=== PATIENT | male | born 1960 | race Two or more races ===

== ENCOUNTER 2023-04-29 15:51 | Outpatient (AMB) | payer OTHER, SELFPAY ==
--- NOTE | 2023-04-29 16:16 | A.OFFPC_ITS ---
Vital Signs 04/29/23 16:17 04/29/23 18:13 Height 5 ft 9 in Weight 242 lb 2 oz BMI 35.8 BP 140/82 H 140/80 H Blood Pressure Location Lt brachial Lt brachial Position Sitting Sitting Respiration 16 Pulse 96 Pulse Source Pulse Oximeter Pulse Oximetry (%) 97 Oxygen Delivery Method Room Air Intake Visit Reasons: est care Intake Note: Patient is a new patient here to establish care for knee effusion, arthritis. Transferring care from [facility]. Medical records have been requested and yet received. 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 by: Self / Same As Patient Allergies No Known Allergies Allergy (Verified 04/29/23 16:39) Medication List - Last Reconciled 04/29/23 by Pura Smith MD acetaminophen ER 650 mg PO TID ammonium lactate 12% 1 appl topical BID dupilumab (Dupixent) mg subcut fluoxetine mg PO fluticasone propionate 50 mcg/actuation sprays intranasal hydrochlorothiazide 25 mg PO DAILY imipramine HCl 25 mg PO BEDTIME lorazepam 1 mg PO BID metoprolol succinate ER 50 mg PO DAILY omeprazole 20 mg PO DAILY simvastatin 40 mg PO BEDTIME tolterodine ER 4 mg PO DAILY tramadol 50 mg PO BID PRN triamcinolone acetonide 0.1% 1 appl topical BID-TID zolpidem 10 mg PO BEDTIME PRN Tobacco use date assessed: 04/29/23 Dental Screening Dental Screen Date: 04/29/23 Did you have a dental visit in the last 12 months?: Yes Did you have a dental problem in the last 6 months where you did not have access to dental care?: No Was dental information given to patient?: Patient has dentist HPI HPI Comments History of Present Illness Details This is a 62-year-old male with hypertension, chronic GERD, pure hypercholesterolemia, moderate major depression and anxiety that comes today to establish care. Blood pressure borderline normal to elevated and will be recheck in 3 weeks by nurse navigator. GERD stable with medications. Lipid panel will be order to check his cholesterol. Has moderate major depression with no suicidal thoughts as well as anxiety and this is follow by Psychiatry. Denies any chest pain or shortness of breath. Went recently to to knee pain that require arthrocentesis and was diagnosed with gout. COUNT INCLUDES [facility] Surgical History S/P meniscectomy S/P prostatectomy Family History (Updated 04/29/23 @ 16:48 by Pura Smith MD) Mother Essential hypertension Brother Colon cancer Social History (Updated 04/29/23 @ 16:48 by Pura Smith MD) Housing: Apartment Alcohol intake: current Alcohol intake frequency: holidays/special occasions only Alcohol type: beer Patient Tobacco Use Status: Never used Tobacco e-Cigarette/Vaping Use: Never Used service: No Current occupational status: retired Cognitive needs: No Hearing needs: No Vision needs: Yes Questionnaire PHQ-9 Over the last 2 weeks, how often have you been bothered by any of the following problems? 1. Little interest or pleasure in doing things: nearly every day 2. Feeling down, depressed, or hopeless: nearly every day 3. Trouble falling or staying asleep, or sleeping too much: more than half the days 4. Feeling tired or having little energy: more than half the days 5. Poor appetite or overeating: several days 6. Feeling bad about yourself - or that you are a failure or have let yourself or your family down: nearly every day 7. Trouble concentrating on things, such as reading the newspaper or watching television: more than half the days 8. Moving or speaking so slowly that other people could have noticed. Or the opposite - being so fidgety or restless that you have been moving around a lot more than usual: more than half the days 9. Thoughts that you would be better off or of hurting yourself in some way: not at all Total score: 18 Depression Screening Interpretation: Positive (no suicidal thoughts) Depression Screening Follow-up: Existing condition, In treatment and Community Mental Health Worker F/U Depression Screening Done: Yes 71926 - PHQ-9 Billing: Yes Source: Developed by Drs. Chucky Parker, Penny Henderson, Sandeep Dumas and colleagues, with an educational veronica from [employer]. Thrive Questionnaire Date Thrive assessed: 04/29/23 I am a: Patient What is your living situation today?: I have a steady place to live Within the past 12 months, did the food you bought not last and you didn't have the money to get more?: Never true Within the past 12 months, did you worry whether your food would run out before you got money to buy more?: Never true Do you have trouble paying for medicines?: No Do you have trouble getting transportation to medical appointments?: No Do you have trouble paying your heating and electricity bill?: No Do you have trouble taking care of your child, family member or friend?: No Do you have trouble with day-to-day activities such as bathing, preparing meals, shopping, managing finances, etc.?: No Are you currently unemployed and looking for a job?: No Are you interested in more education?: No Please select the resources that you would like help with: None Currently or been in a relationship where the following occur: no concerns reported THRIVE Score: 0 AUDIT C Alcohol Use Questionnaire (AUDIT-C) 1. How often do you have a drink containing alcohol?: Monthly or less 2. How many drinks containing alcohol do you have on a typical day when you are drinking?: 3 or 4 3. How often do you have six or more drinks on one occasion?: Never Total Score: 2 EDWARD-7 AMB Questionnaire EDWARD-7 Date EDWARD - 7 assessed: 04/29/23 Feeling nervous, anxious, or on edge: 3 = Nearly every day Not being able to stop or control worryin = More than half the days Worrying too much about different things: 3 = Nearly every day Trouble relaxin = Nearly every day Being so restless that it is hard to sit still: 2 = More than half the days Becoming easily annoyed or irritable: 2 = More than half the days Feeling afraid as if something awful might happen: 1 = Several days Total EDWARD-7 score (0-4 normal; 5-9 mild; 10-14 moderate; 15-21 severe): 16 Source: Developed by Drs. Chucky Parker, Penny Henderson, Sandeep Dumas and colleagues, with an educational veronica from [employer]. EDWARD-7 Assessment Billing EDWARD-7 Assessment Tool: EDWARD-7 Assessment 27248 Review of Systems Const All systems reviewed & are unremarkable except as noted in HPI and below Eyes Reports no additional complaints, Denies change in vision and Denies other visual disturbances Card Denies chest pain at rest, Denies chest pain with activity, Denies edema, Denies irregular heart rhythm, Denies claudication, Denies dyspnea, Denies dyspnea on exertion, Denies orthopnea, Denies paroxysmal nocturnal dyspnea and Denies slow heart rate Resp Denies cough, Denies dyspnea and Denies dyspnea on exertion GI Denies abdominal pain, Denies change in bowel habits, Denies excessive flatus, Denies nausea and Denies vomiting Denies urinary hesitancy, Denies urinary incontinence and Denies urinary urgency Musc Denies abnormal gait, Denies atrophy, Denies deformity and Denies limited range of motion Skin/Breast Denies bleeding lesions, Denies changing lesions and Denies rash Neuro Denies abnormal gait, Denies behavioral changes and Denies lack of coordination Psych Denies behavioral changes Physical exam (Primary Care) Vital Signs: Last Vital Signs Pulse 96 04/29/23 16:17 Resp 16 04/29/23 16:17 BP 140/82 H 04/29/23 16:17 Pulse Ox 97 04/29/23 16:17 Oxygen Delivery Method Room Air 04/29/23 16:17 BMI result Body Mass Index 35.8 Tobacco/Smoking Status: Tobacco use Status Tobacco use date assessed 04/29/23 04/29/23 16:34 Patient Tobacco Use Status Never used Tobacco 04/29/23 16:48 e-Cigarette/Vaping Use Never Used 04/29/23 16:48 PHQ-9: PHQ-9 Score PHQ-9: Total score 18 04/29/23 16:50 Depression Screening Interpretation: Positive (no suicidal thoughts) Depression Screening Follow-up: Existing condition, In treatment and Community Mental Health Worker F/U Thrive Assessment: Date of Thrive Assessment Date Thrive assessed 04/29/23 04/29/23 16:27 Currently or been in a relationship where the following occur: no concerns reported Eyes General: appearance normal, both eyes and all related structures Eyelids: Yes eyelids normal Conjunctivae: conjunctivae normal Neck Neck: Yes normal visual inspection and Yes supple Resp Effort & Inspection: normal respiratory effort Auscultation: clear to auscultation bilaterally Cardio Jugular venous distension: no JVD Rate: regular rate Rhythm: regular rhythm Heart sounds: S1 normal heart sound present and S2 normal heart sound present Extrem General: Yes full ROM Psych Appearance: grossly normal Assessment and Plan Assessment & Plan (1) Moderate major depression: Code(s): F32.1 - Major depressive disorder, single episode, moderate Plan: Continue SSRIs. Follow-up with psychiatry. (2) Essential hypertension: Code(s): I10 - Essential (primary) hypertension Plan: Continue hydrochlorothiazide. Blood pressure goal is equal or less than 130/80. (3) Pure hypercholesterolemia: Code(s): E78.00 - Pure hypercholesterolemia, unspecified Plan: Continue statins. (4) EDWARD (generalized anxiety disorder): Code(s): F41.1 - Generalized anxiety disorder Plan: Continue benzodiazepines as needed. Follow-up with psychiatry. (5) Chronic GERD: Code(s): K21.9 - Gastro-esophageal reflux disease without esophagitis Plan: Continue PPIs. Orders: Orders Lipid Panel Today E78.5 - Hyperlipidemia, unspecified Uric Acid Today M10.9 - Gout, unspecified Comprehensive [place]. Panel Fast Today I10 - Essential (primary) hypertension Coding Level of Care Code New Pt Level 4 (23515) Diagnoses Moderate major depression F32.1 Essential hypertension I10 Pure hypercholesterolemia E78.00 EDWARD (generalized anxiety disorder) F41.1 Chronic GERD K21.9 Additional Codes EDWARD-7 Assessment Billing - EDWARD-7 Assessment Tool: EDWARD-7 Assessment 73772 ([id number]) Time Spent (min) 28
[2023-04-29 16:17] VITALS: BP 140/82; PULSE 96; RESP 16; O2SAT 97; BMI 35.8
[2023-04-29 18:13] VITALS: BP 140/80
== END 2023-04-29 16:53 | disposition home or self-care (01) ==
PROVIDERS: PCP Internal Medicine; Visit Provider Internal Medicine
DX: F32.1 Major depressive disorder, single episode, moderate (principal); I10 Essential (primary) hypertension; E78.00 Pure hypercholesterolemia, unspecified; F41.1 Generalized anxiety disorder; K21.9 Gastro-esophageal reflux disease without esophagitis
CPT/HCPCS: 99204

== ENCOUNTER 2023-09-16 08:00 | Outpatient (REF) | payer OTHER, SELFPAY ==
[2023-09-16 09:06] LABS: Alanine Aminotransferase 27 U/L (0-40); Albumin Level 4.3 g/dL (3.5-5.0); Alkaline Phosphatase 113 U/L (39-117); Anion Gap 14 (12-20); Aspartate Amino Transferase 33 U/L (5-37); Bilirubin Total 0.7 mg/dL (0.0-1.0); Blood Urea Nitrogen 7 mg/dL (9-16); Calcium 9.5 mg/dL (8.4-10.2); Carbon Dioxide 26 mmol/L (22-29); Chloride 101 mmol/L (96-108); Cholesterol 226 mg/dL (<200); Estimated Glomerular Filt Rate > 60; Glucose Fasting 125 mg/dL (60-99); HDL Cholesterol 87 mg/dL (>40); LDL Cholesterol Calculated 115 mg/dL (<100); Potassium 3.4 mmol/L (3.3-5.1); Sodium 138 mmol/L (135-145); Total Protein 7.6 g/dL (6.5-8.0); Triglycerides 124 mg/dL (<150); Uric Acid 7.6 mg/dL (3.4-7.0)
== END 2023-09-16 08:01 | disposition home or self-care (01) ==
LOC: HO.LAB 08:00
PROVIDERS: PCP Internal Medicine; Visit Provider Internal Medicine
DX: I10 Essential (primary) hypertension (principal); E78.5 Hyperlipidemia, unspecified; M10.9 Gout, unspecified
CPT/HCPCS: 36415; 80053; 80061; 84550

== ENCOUNTER 2023-09-18 11:09 | Outpatient (AMB) | payer OTHER, SELFPAY ==
--- NOTE | 2023-09-18 11:12 | MHC.PC.OV ---
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 Accompanied by: step son Allergies No Known Allergies Allergy (Verified 09/18/23 11:26) Medication List - Last Reconciled 09/18/23 by Pura Smith MD acetaminophen ER 650 mg PO TID 30 days ammonium lactate 12% 1 appl topical BID dupilumab (Dupixent) mg subcut fluoxetine 40 mg PO DAILY 90 days fluticasone propionate 50 mcg/actuation 1 spray intranasal DAILY 30 days hydroxyzine HCl 25 mg PO TID imipramine HCl 25 mg PO BEDTIME 90 days lorazepam 1 mg PO BID metoprolol succinate ER 50 mg PO DAILY 90 days omeprazole 20 mg PO DAILY 90 days quetiapine 50 - 100 mg PO BEDTIME PRN simvastatin 40 mg PO BEDTIME 90 days tacrolimus 0.1% 1 appl topical BID tolterodine ER 4 mg PO DAILY 90 days Tobacco use date assessed: 04/29/23 Dental Screening Dental Screen Date: 04/29/23 HPI HPI Comments History of Present Illness Details This is a 62-year-old male with moderate major depression that comes accompanied by the son of his significant other for his physical exam. Moderate major depression is follow by Psychiatry and has been stable. Blood pressure is elevated and I will add losartan and blood pressure will be recheck in 3 weeks by nurse navigator. Denies any chest pain or shortness on breath. Had a brother with colon cancer and has never had a colonoscopy as per patient. Will be refer through open access. Has elevated blood glucose that will be repeated. Has polyuria and polydipsia but no unintentional weight loss. Complains of low back pain and left hip pain that radiates to the left leg and is associated with left leg numbness and tingling most likely due to sciatica and I will sent him for physical therapy. [facility] Surgical History S/P meniscectomy S/P prostatectomy Family History (Updated 09/18/23 @ 11:32 by Pura Smith MD) Mother Essential hypertension Brother Colon cancer Father Pulmonary embolism Social History Housing: Apartment Alcohol intake: current Alcohol intake frequency: holidays/special occasions only Alcohol type: beer Patient Tobacco Use Status: Never used Tobacco e-Cigarette/Vaping Use: Never Used Second Hand Smoke Exposure: No service: No Current occupational status: retired Cognitive needs: No Hearing needs: No Vision needs: Yes Questionnaire Thrive Questionnaire Date Thrive assessed: 04/29/23 AUDIT C Alcohol Use Questionnaire (AUDIT-C) 1. How often do you have a drink containing alcohol?: 2-4 times a month 2. How many drinks containing alcohol do you have on a typical day when you are drinking?: 3 or 4 3. How often do you have six or more drinks on one occasion?: Never Total Score: 3 Score Reviewed/Action Taken: No EDWARD-7 AMB Questionnaire EDWARD-7 Date EDWARD - 7 assessed: 04/29/23 Source: Developed by Drs. Chucky Parker, Penny Henderson, Sandeep Dumas and colleagues, with an educational veronica from [employer]. Review of Systems Const All systems reviewed & are unremarkable except as noted in HPI and below Card Denies chest pain at rest, Denies chest pain with activity, Denies edema, Denies irregular heart rhythm, Denies claudication, Denies dyspnea, Denies dyspnea on exertion, Denies orthopnea, Denies paroxysmal nocturnal dyspnea and Denies slow heart rate Resp Denies cough, Denies dyspnea and Denies dyspnea on exertion Musc Reports back pain Neuro Denies behavioral changes Psych Denies behavioral changes Physical exam (Primary Care) Vital Signs: Last Vital Signs BP 146/88 H 09/18/23 11:14 Care Plan Goal for BP management: Blood pressure goal is less than 130/80. Next steps: Start losartan. Recheck blood pressure with nurse navigator in 3 weeks. BMI result Body Mass Index 34.3 BMI Assessment/Plan discussion: High BMI High, discussed plan: lifestyle, weight reduction, dietary and physical activity Tobacco/Smoking Status: Tobacco use Status Tobacco use date assessed 04/29/23 09/18/23 11:13 Patient Tobacco Use Status Never used Tobacco 09/18/23 11:13 e-Cigarette/Vaping Use Never Used 09/18/23 11:13 Thrive Assessment: Date of Thrive Assessment Date Thrive assessed 04/29/23 09/18/23 11:13 HENMA Head: Yes normal to inspection, Yes normocephalic and Yes atraumatic Ears: external ears normal Eyes General: appearance normal, both eyes and all related structures Eyelids: Yes eyelids normal Conjunctivae: conjunctivae normal Neck Neck: Yes normal visual inspection and Yes supple Resp Effort & Inspection: normal respiratory effort Auscultation: clear to auscultation bilaterally Cardio Jugular venous distension: no JVD Rate: regular rate Rhythm: regular rhythm Heart sounds: S1 normal heart sound present and S2 normal heart sound present GI Inspection: Yes normal to inspection Palpation (GI): Soft to palpation and nontender Auscultation: normal bowel sounds Skin General skin exam: no rashes or lesions noted Neuro General: no focal motor deficits Extrem General: Yes full ROM Psych Appearance: grossly normal Assessment and Plan Assessment & Plan (1) Physical exam: Code(s): Z00.00 - Encounter for general adult medical examination without abnormal findings Plan: Repeat in a year. (2) Left sided sciatica: Code(s): M54.32 - Sciatica, left side Plan: Start physical therapy. X-ray ordered. (3) Left hip pain: Code(s): M25.552 - Pain in left hip Plan: X-ray ordered. (4) Moderate major depression: Code(s): F32.1 - Major depressive disorder, single episode, moderate Plan: Continue Seroquel. Follow-up with psychiatry. Orders: Orders Comprehensive [place]. Panel Fast Today R73.02 - Impaired glucose tolerance (oral) PT Evaluation and Treatment Today M54.32 - Sciatica, left side XR lumbar spine 2-3V Today M54.32 - Sciatica, left side XR hip LT min 2V Today M25.552 - Pain in left hip Referrals Open Access Screening Colonoscopy Referral Z12.11 - Encounter for screening for malignant neoplasm of colon Medications: New allopurinol 100 mg PO DAILY 90 days 90 tabs 0RF M10.9 - Gout, unspecified losartan 25 mg PO DAILY 90 days 90 tabs 1RF I10 - Essential (primary) hypertension atorvastatin 80 mg PO BEDTIME 90 days 90 tabs 1RF E78.00 - Pure hypercholesterolemia, unspecified Discontinued simvastatin Discontinued Reason: Patient Completed Course 40 mg PO BEDTIME 90 days 90 tabs 1RF Coding Level of Care Code Est Pt Level 3 (68620) Est Pt Prev Care 40-64y(93093) Diagnoses Physical exam Z00.00 Left sided sciatica M54.32 Left hip pain M25.552 Moderate major depression F32.1 Time Spent (min) 35
[2023-09-18 11:14] VITALS: BP 146/88; BMI 34.3
[2023-09-18 11:53] VITALS: BP 150/90
== END 2023-09-18 11:41 | disposition home or self-care (01) ==
PROVIDERS: PCP Internal Medicine; Visit Provider Internal Medicine
DX: Z00.00 Encounter for general adult medical examination without abnormal findings (principal); M54.32 Sciatica, left side; M25.552 Pain in left hip; F32.1 Major depressive disorder, single episode, moderate
CPT/HCPCS: 99213; 99396

== ENCOUNTER 2023-11-21 11:00 | Outpatient (RCR) | payer OTHER, SELFPAY | END 2024-01-21 09:53 | disposition home or self-care (01) | LOC: HO.PT 11:00 | PROVIDERS: PCP Internal Medicine; Visit Provider Internal Medicine | DX: M54.32 Sciatica, left side (principal) | CPT/HCPCS: 97110; 97112; 97161; 97530 ==

== ENCOUNTER 2024-02-07 09:37 | Outpatient (REF) | payer OTHER, SELFPAY ==
[2024-02-07 11:04] LABS: Alanine Aminotransferase 150 U/L (0-40); Albumin Level 4.3 g/dL (3.5-5.0); Alkaline Phosphatase 155 U/L (39-117); Anion Gap 21 (12-20); Aspartate Amino Transferase 217 U/L (5-37); Blood Urea Nitrogen 5 mg/dL (9-16); Calcium 9.1 mg/dL (8.4-10.2); Carbon Dioxide 21 mmol/L (22-29); Chloride 98 mmol/L (96-108); Estimated Glomerular Filt Rate > 60; Glucose Fasting 181 mg/dL (60-99); Potassium 3.7 mmol/L (3.3-5.1); Sodium 136 mmol/L (135-145); Total Protein 8.5 g/dL (6.5-8.0)
== END 2024-02-07 09:38 | disposition home or self-care (01) ==
LOC: HO.LAB 09:37
PROVIDERS: PCP Internal Medicine; Visit Provider Internal Medicine
DX: R73.02 Impaired glucose tolerance (oral) (principal)
CPT/HCPCS: 36415; 80053

== ENCOUNTER 2024-02-09 15:10 | Outpatient (AMB) | payer OTHER, SELFPAY ==
--- NOTE | 2024-02-09 16:44 | A.OFFPC_ITS ---
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: No Accompanied by: Self / Same As Patient Allergies No Known Allergies Allergy (Verified 02/09/24 17:14) Medication List - Last Reconciled 02/09/24 by Pura Smith MD acetaminophen ER 650 mg PO TID 30 days allopurinol 100 mg PO DAILY 90 days ammonium lactate 12% 1 appl topical BID atorvastatin 80 mg PO BEDTIME 90 days dupilumab (Dupixent) mg subcut fluoxetine 40 mg PO DAILY 90 days fluticasone propionate 50 mcg/actuation 1 spray intranasal DAILY 30 days hydroxyzine HCl 25 mg PO TID imipramine HCl 25 mg PO BEDTIME 90 days lorazepam 1 mg PO BID losartan 25 mg PO DAILY 90 days metoprolol succinate ER 50 mg PO DAILY 90 days omeprazole 20 mg PO DAILY 90 days quetiapine 50 - 100 mg PO BEDTIME PRN tacrolimus 0.1% 1 appl topical BID tolterodine ER 4 mg PO DAILY 90 days Tobacco use date assessed: 04/29/23 Fall risk assessment: No Falls in past year Last assessed Fall Risk: 02/09/24 Dental Screening Dental Screen Date: 02/09/24 Did you have a dental visit in the last 12 months?: Yes Did you have a dental problem in the last 6 months where you did not have access to dental care?: No Was dental information given to patient?: Patient has dentist HPI HPI Comments History of Present Illness Details The patient is a 63-year-old male presenting with elevated blood pressure and knee pain. The patient reports a long-standing history of essential hypertension, currently not well controlled. Blood pressure was found to be high during the recent visit, with a recommendation for follow-up blood pressure monitoring in three weeks with nurse navigator. The patient denies smoking. Additionally, the patient has a history of gout, currently managed with allopurinol 100 mg, and hypercholesterolemia managed with atorvastatin 80 mg. Anxiety and depression are managed with fluoxetine and hydroxyzine, respectively. The patient reports knee pain, which has persisted for approximately 3-4 months, affecting both knees. The pain is exacerbated by extension and is described as severe enough to limit walking. Examination findings prompted the consideration of a referral to orthopedics for further evaluation. Previous laboratory results indicated elevated liver enzymes and elevated blood sugar levels, with plans for re-evaluation in upcoming tests. For transaminitis and ultrasound of the abdomen will be order to check the liver and liver enzymes will be repeated. He admits having polyuria and polydipsia and his A1c today 7.5% and with made the diagnosis of diabetes mellitus. We will start him on metformin twice a day and he will check his fasting blood glucose daily. Patient is aware of side effects of metformin such as abdominal pain and diarrhea. [facility] Surgical History S/P meniscectomy S/P prostatectomy Family History Mother Essential hypertension Brother Colon cancer Father Pulmonary embolism Social History Housing: Apartment Alcohol intake: current Alcohol intake frequency: holidays/special occasions only Alcohol type: beer Patient Tobacco Use Status: Never used Tobacco e-Cigarette/Vaping Use: Never Used Second Hand Smoke Exposure: No service: No Current occupational status: retired Cognitive needs: No Hearing needs: No Vision needs: Yes Questionnaire Thrive Questionnaire Date Thrive assessed: 04/29/23 EDWARD-7 AMB Questionnaire EDWARD-7 Date EDWARD - 7 assessed: 04/29/23 Source: Developed by Drs. Chucky Parker, Penny Henderson, Sandeep Dumas and colleagues, with an educational veronica from [employer]. Review of Systems Const Details: - Musculoskeletal: Reports knee pain, bilaterally. - Endocrine: Denies excessive thirst. - General: Denies recent illness. Physical exam (Primary Care) Vital Signs: Last Vital Signs BP 144/84 H 02/09/24 16:45 BMI result Body Mass Index 34.8 BMI Assessment/Plan discussion: High BMI High, discussed plan: lifestyle, weight reduction, dietary and physical activity Tobacco/Smoking Status: Tobacco use Status Tobacco use date assessed 04/29/23 02/09/24 16:47 Patient Tobacco Use Status Never used Tobacco 02/09/24 16:47 e-Cigarette/Vaping Use Never Used 02/09/24 16:47 Thrive Assessment: Date of Thrive Assessment Date Thrive assessed 04/29/23 02/09/24 16:47 Const Other: General: No confusion Respiratory: Normal respiratory effort, clear to auscultation bilaterally Cardiovascular: No jugular venous distension, regular rate, regular rhythm, S1 normal heart sound present and S2 normal heart sound present Extremities: Full ROM, but pain in both knees, especially when extending Psychology: Grossly normal Office Procedures Flu Questionnaire Does the patient have a severe egg allergy?: No Results AMB Hemoglobin A1c AMB Hemoglobin A1c 7.5 % Last Edit by HANNAH Carlisle on 02/09/24 17:2 8 Immunizations Fluarix Triv [id number] (PF) 45 mcg (15 mcg x 3)/0.5 mL IM syringe Performing Provider: Pura Smith MD Performing Location: [facility] [place] [facility] Documented (not given) by: HANNAH Carlisle on 02/09/24 17:28 Reason Not Given: Not Given Results Reviewed Results Reviewed: Laboratory Last Values Hgb A1c (Clinic) 7.5 % (4.0-6.0) H 02/09/24 17:27 Coding Level of Care Code Est Pt Level 4 (04435) Complex EM visit Add On G2211 Diagnoses Type 2 diabetes mellitus with hyperglycemia, without long-term current use of insulin E11.65 Diabetes mellitus type: type 2 Diabetes mellitus fci insulin use: without marine oil 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 use Diabetes mellitus complication status: with hyperglycemia Chronic pain of right knee M25.561; G89.29 Chronicity: chronic Chronic pain of left knee M25.562; G89.29 Chronicity: chronic Transaminitis R74.01 Moderate major depression F32.1 EDWARD (generalized anxiety disorder) F41.1 Essential hypertension I10 Pure hypercholesterolemia E78.00 Time Spent (min) 22 Assessment & Plan Assessment & Plan (1) Diabetes mellitus: Code(s): E11.9 - Type 2 diabetes mellitus without complications Category: Medical Qualifiers: Diabetes mellitus type: type 2 Diabetes mellitus fci insulin use: without marine oil 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 use Diabetes mellitus complication status: with hyperglycemia Qualified Code(s): E11.65 - Type 2 diabetes mellitus with hyperglycemia (2) Right knee pain: Code(s): M25.561 - Pain in right knee Category: Medical Qualifiers: Chronicity: chronic Qualified Code(s): M25.561 - Pain in right knee; G89.29 - Other chronic pain (3) Left knee pain: Code(s): M25.562 - Pain in left knee Category: Medical Qualifiers: Chronicity: chronic Qualified Code(s): M25.562 - Pain in left knee; G89.29 - Other chronic pain (4) Transaminitis: Code(s): R74.01 - Elevation of levels of liver transaminase levels Category: Medical (5) Moderate major depression: Code(s): F32.1 - Major depressive disorder, single episode, moderate Category: Medical (6) EDWARD (generalized anxiety disorder): Code(s): F41.1 - Generalized anxiety disorder Category: Medical (7) Essential hypertension: Code(s): I10 - Essential (primary) hypertension Category: Medical (8) Pure hypercholesterolemia: Code(s): E78.00 - Pure hypercholesterolemia, unspecified Category: Medical Plan - Continue current antihypertensive medications, reassess blood pressure in three weeks. - Schedule follow-up labs for liver enzymes and blood glucose levels in two to three weeks. - Referral to orthopedics for assessment of bilateral knee pain and potential intervention. - Perform an ultrasound of the liver to evaluate elevated liver enzymes. - Encourage compliance with current prescribed medications for depression, anxiety, and hypercholesterolemia. Patient was informed and verbally consented to the use of an ambient scribe for clinic note documentation during this visit. I discussed with the patient the importance of regular monitoring and management of blood pressure to prevent complications. We reviewed the elevated liver enzymes and the need for an ultrasound to rule out significant hepatic pathology. Additionally, I emphasized adherence to medication regimens for anxiety, depression, hypercholesterolemia, and gout. The need for orthopedic evaluation for persistent knee pain was also addressed. Future lab tests and imaging were outlined, and follow-up was scheduled for comprehensive assessment. Orders: Orders PT Evaluation and Treatment 02/09/24 M25.561 - Pain in right knee, M25.562 - Pain in left knee US abdomen comp w elastography 02/09/24 R74.01 - Elevation of levels of liver transaminase levels Hepatitis A,B,C Profile 02/09/24 R74.01 - Elevation of levels of liver transaminase levels XR knee LT 2V 02/09/24 M25.562 - Pain in left knee XR knee RT 2V 02/09/24 M25.561 - Pain in right knee AMB Hemoglobin A1c 02/09/24 R73.01 - Impaired fasting glucose Influenza [id number] Immunization 02/09/24 Z23 - Encounter for immunization Referrals Orthopedics Referral M25.561 - Pain in right knee, M25.562 - Pain in left knee Medications: New metformin 500 mg PO BID 90 days 180 tabs 1RF E11.9 - Type 2 diabetes mellitus without complications blood sugar diagnostic (FreeStyle Lite Strips) Use 1 test strip once a day 100 ea 3RF E11.9 - Type 2 diabetes mellitus without complications blood-glucose meter (FreeStyle Lite Meter kit) As directed 1 ea 0RF E11.9 - Type 2 diabetes mellitus without complications lancets (FreeStyle Lancets) Use 1 lancet once a day 100 ea 1RF E11.9 - Type 2 diabetes mellitus without complications Refilled fluticasone propionate 50 mcg/actuation 1 spray intranasal DAILY 30 days 16 grams 1RF Patient Instructions: - Monitor blood pressure at home and note any significant changes. - Continue current medications as prescribed. - Attend scheduled follow-up appointments for blood pressure check and lab retesting. - Follow up with the systems software specialist as scheduled for knee evaluation. - Report any new or worsening symptoms immediately.
[2024-02-09 16:45] VITALS: BP 144/84; BMI 34.8
== END 2024-02-09 17:34 | disposition home or self-care (01) ==
PROVIDERS: PCP Internal Medicine; Visit Provider Internal Medicine
DX: E11.65 Type 2 diabetes mellitus with hyperglycemia (principal); F32.1 Major depressive disorder, single episode, moderate; M25.561 Pain in right knee; G89.29 Other chronic pain; M25.562 Pain in left knee; R74.01 Elevation of levels of liver transaminase levels; F41.1 Generalized anxiety disorder; I10 Essential (primary) hypertension; E78.00 Pure hypercholesterolemia, unspecified

== ENCOUNTER → 2024-02-09 15:10 | Outpatient (BNVA) | payer OTHER, SELFPAY | PROVIDERS: PCP Internal Medicine; Visit Provider Internal Medicine | DX: E11.65 Type 2 diabetes mellitus with hyperglycemia (principal); M25.561 Pain in right knee; M25.562 Pain in left knee; G89.29 Other chronic pain; R74.01 Elevation of levels of liver transaminase levels; F32.1 Major depressive disorder, single episode, moderate; F41.1 Generalized anxiety disorder; I10 Essential (primary) hypertension; E78.00 Pure hypercholesterolemia, unspecified | CPT/HCPCS: 83036; 90471; 99212 ==

== ENCOUNTER → 2024-02-26 13:25 | Outpatient (BNVA) | payer OTHER, SELFPAY | PROVIDERS: PCP Internal Medicine ==

== ENCOUNTER 2024-03-02 08:05 | Outpatient (REF) | payer OTHER, SELFPAY ==
--- NOTE | ~2024-03-02 | US_ITS ---
EXAMINATION: US ABDOMEN COMPLETE WITH LIVER ELASTOGRAPHY HISTORY: R74.01 - Elevation of levels of liver transaminase levels TECHNIQUE: Real-time grayscale ultrasound imaging of the abdomen was performed and images were reviewed. COMPARISON: There are no prior studies for comparison. FINDINGS: Liver: The liver is enlarged and demonstrates increased echotexture, compatible with steatosis. No focal mass or intrahepatic biliary ductal dilatation is identified. There is normal hepatopedal flow in the portal vein. Ultrasound elastography of the liver was performed with 10 separate measurements of the liver parenchyma with the patient in the supine position. Measurements were obtained approximately 2 cm below Veronica's capsule and perpendicular to the capsule. Images are of satisfactory quality. The median shear wave velocity is 1.91 m/s. The interquartile range/median (IQR/median) is 0.08. Gallbladder and biliary tree: There is a probable 2 mm gallbladder polyp. The gallbladder is otherwise unremarkable, without evidence of calculi, wall thickening, or pericholecystic fluid. There is no sonographic Franco sign. The common bile duct is normal in caliber measuring 5 mm. Kidneys: The right kidney measures 10.7 cm in length. The left kidney measures 11.3 cm in length. The kidneys are unremarkable, without evidence of masses, hydronephrosis, or calculi. Pancreas: The pancreatic head, neck, and body are unremarkable. The pancreatic tail is obscured by bowel gas. Spleen: The spleen is normal in size and contour, measuring 9.2 cm in length. There is a 1.3 cm splenule. Abdominal aorta and inferior vena cava: The visualized portions of the abdominal aorta and inferior vena cava are normal in caliber. There is no free fluid in the abdomen. US/US abdomen comp w elastography IMPRESSION: Hepatomegaly and hepatic steatosis. The median shear wave velocity is 1.91 m/s, corresponding to a median liver stiffness of 11.05 kPa. The IQR/median value is 0.08. This is indicative of a quality data set. Findings are indicative of a high elastography value suggestive of advanced chronic liver disease. REFERENCE: Society of Radiologists in Ultrasound Liver Stiffness Thresholds (2020): LIVER STIFFNESS THRESHOLDS: *Shear wave velocity less than 1.3 m/s (Liver Stiffness equal or less than 5 kPa): High probability of being normal. *Shear wave velocity less than 1.7 m/s (Liver Stiffness less than 9 kPa): In the absence of other known clinical signs, rules out compensated advanced chronic liver disease. *Shear wave velocity between 1.7-2.1 m/s (Liver Stiffness 9-13 kPa): Suggestive of compensated advanced chronic liver disease but need further test for confirmation. *Shear wave velocity between 2.1-2.4 m/s (Liver Stiffness 13-17 kPa): Rules in compensated advanced chronic liver disease. *Shear wave velocity greater than 2.4 m/s (Liver Stiffness over 17 kPa): Suggestive of clinically significant portal hypertension. QUALITY OF DATA SET: *IQR/Median value equal or less than 0.15 implies a quality data set. *IQR/Median value over 0.15 implies a poor quality data set. SIGNIFICANT CHANGE FROM PRIOR EXAM: Significant change if liver stiffness measurement is 10% or greater from prior exam. OTHER CONSIDERATIONS: The stage of liver fibrosis may be overestimated in the setting of acute hepatitis, liver inflammation, elevated liver function tests, hepatic vascular congestion, obstructive cholestasis, non-fasting state, and infiltrative diseases such as amyloidosis and lymphoma. In some patients with NAFLD, the liver stiffness thresholds for compensated advanced chronic liver disease may be lower. In causes other than viral hepatitis and NAFLD, liver stiffness thresholds are not well established. Electronically signed by: Chucky Beavers MD 03/03/2024 08:20 AM [facility]
== END 2024-03-02 08:06 | disposition home or self-care (01) ==
LOC: HO.US 08:05
PROVIDERS: PCP Internal Medicine; Visit Provider Internal Medicine
DX: R74.01 Elevation of levels of liver transaminase levels (principal)
CPT/HCPCS: 76700; 76981

== ENCOUNTER → 2024-03-02 08:06 | Outpatient (BNV) | payer OTHER, SELFPAY | PROVIDERS: PCP Internal Medicine; Visit Provider Radiology Diagnostic Radiology | DX: R74.01 Elevation of levels of liver transaminase levels (principal) | CPT/HCPCS: 76700 ==

== ENCOUNTER 2024-03-11 13:17 | Outpatient (AMB) | payer OTHER, SELFPAY ==
--- NOTE | 2024-03-11 13:32 | MHC.OFFVIS ---
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 States his left is worse. States he feels unstable on his feet and has fallen multiple times. States his knee locks when walking and ROM is painful. Patient has tried P.T but was not able to to complete his session due to a personal issue. Hx of injection in the 90's with good relief for about 2-3 month. Also has numbness and tingling in bilateral feet. 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 States his left is worse. States he feels unstable on his feet and has fallen multiple times. States his knee locks when walking and ROM is painful. Patient has tried P.T but was not able to to complete his session due to a personal issue. Hx of injection in the 90's with good relief for about 2-3 month. Also has numbness and tingling in bilateral feet. PFSH Surgical History S/P meniscectomy S/P prostatectomy Family History Mother Essential hypertension Brother Colon cancer Father Pulmonary embolism Social History Housing: Apartment Alcohol intake: current Alcohol intake frequency: holidays/special occasions only Alcohol type: beer Patient Tobacco Use Status: Never used Tobacco e-Cigarette/Vaping Use: Never Used Second Hand Smoke Exposure: No service: No Current occupational status: retired Cognitive needs: No Hearing needs: No Vision needs: Yes Review of Systems Const All systems reviewed & are unremarkable except as noted in HPI and below Physical Exam Vital Signs: BMI result Body Mass Index 34.8 Extrem Other: Patient's bilateral knees normal to inspection No erythema, ecchymosis, edema noted No lacerations, abrasions, open areas No evidence of infection Patient reports diffuse tenderness to palpation of the left knee No tenderness to palpation of the anterior aspect, posterior aspect, medial or lateral joint lines, posterior knee, or elsewhere in the right knee Distal sensation intact Capillary refill brisk Results Reviewed Results Reviewed: X-rays obtained in the office today and independently reviewed by me, Nathan Motley PA-C, demonstrate moderate to severe degenerative changes of bilateral knees, worse in the medial compartment bilaterally. Assessment & Plan Assessment & Plan (1) Osteoarthritis of knees, bilateral: Code(s): M17.0 - Bilateral primary osteoarthritis of knee Category: Medical Plan 1. Osteoarthritis of bilateral knees Pain worse in left knee Patient was educated about this condition Patient is educated about the treatment options available, including physical therapy, injections, and referral to surgeon for discussion of potential total knee arthroplasty Patient states he is interested in having the discussion with a surgeon about what a total knee replacement would entail As patient was originally scheduled to see Dr. Serrano today, I have placed a referral to him for his next available surgical consult to discuss potential knee replacement in this patient Patient was amenable to this plan Patient will follow-up for next available surgical consult to discuss total knee arthroplasty with Dr. Serrano, sooner with any acute concerns Orders: Orders XR knee LT 3V Today G89.29 - Other chronic pain, M25.562 - Pain in left knee XR knee RT 3V Today G89.29 - Other chronic pain, M25.561 - Pain in right knee Coding Level of Care Code New Pt Level 3 (54543) Diagnoses Osteoarthritis of knees, bilateral M17.0
[2024-03-11 13:33] VITALS: BMI 34.8
--- OUTSIDE RECORDS SUMMARY | 2024-03-11 15:37 | XMS_ITS | Clinical Summary ---
Author Organization [facility] ity Address [address] [place] [address] Care Team Providers Care Transit Worker Name Role Phone Unavailable Primary Care Provider Unavailabl e Social History Tobacco Use Types Packs/Day Years Used Date Smoking Tobacco: Never Assessed Sex and Gender Information Value Date Recorded Sex Assigned at Not on file Gender Identity Not on file Sexual Orientation Not on file Plan of Treatment Health Maintenance Due Date Last Done Comments DTaP,Tdap,and Td Vaccines (1 - Tdap) 10/15/1978 Zoster Vaccines (1 of 2) 10/15/2009 Cholesterol Screening (Lipid Panel) 01/19/2022 Colorectal Cancer Screening: Colonoscopy 01/19/2022 Depression Screening 01/19/2022 HIV Screening 01/19/2022 Hepatitis C Screening 01/19/2022 Social Influencers of Health Screening 01/19/2022 COVID-19 Vaccine (2 - 2023-2 5 season) 2023 05/04/2020 Influenza Vaccine (#1) 2023 RSV Immunization Patients 60 + Years Old (1 - 1-dose 75+ series) 10/15/2034 HIB Vaccines Aged Out No longer eligi ble based on patient's age to complete this topic HPV Vaccines Aged Out No longer eligi ble based on patient's age to complete this topic Hepatitis A Vaccines Aged Out No long er eligible based on patient's age to complete this topic Hepatitis B Vaccines Aged Out No long er eligible based on patient's age to complete this topic IPV Vaccines Aged Out No longer eligi ble based on patient's age to complete this topic MMR Vaccines Aged Out No longer eligi ble based on patient's age to complete this topic Meningococcal ACWY Vaccine Aged Out N o longer eligible based on patient's age to complete this topic Pneumococcal Vaccine: Pediat rics (0 to 5 Years) and At-Risk Patients (6 to 64 Years) Aged Out No longer eligi ble based on patient's age to complete this topic RSV Immunization Patients Un gabriel 20 months Aged Out No longer eligible b ased on patient's age to complete this topic Varicella Vaccines Aged Out No longer eligible based on patient's age to complete this topic
== END 2024-03-11 13:53 | disposition home or self-care (01) ==
PROVIDERS: PCP Internal Medicine
DX: M17.0 Bilateral primary osteoarthritis of knee (principal)
CPT/HCPCS: 99203

== ENCOUNTER 2024-03-11 13:39 | Outpatient (REF) | payer OTHER, SELFPAY ==
--- NOTE | ~2024-03-11 | XR_ITS ---
CLINICAL HISTORY: M25.561 - Pain in right knee 3 view right knee Comparison: None Findings: Bones intact. No dislocations. There are degenerative changes with moderate to severe loss of height more pronounced in the medial compartment. No joint effusion. No radiopaque foreign body. There is regional arterial calcification. IMPRESSION: 1. No acute findings. This document has been electronically signed by: Rio Lui MD on 03/13/2024 08:00:42
--- NOTE | ~2024-03-11 | XR_ITS ---
CLINICAL HISTORY: M25.562 - Pain in left knee 3 view left knee Comparison: None Findings: Bones intact. No dislocations. There are degenerative changes with moderate to severe loss of height of the joint space. No joint effusion. No radiopaque foreign body. There is regional arterial calcification. IMPRESSION: 1. No acute findings. This document has been electronically signed by: Rio Lui MD on 03/13/2024 08:01:42
--- OUTSIDE RECORDS SUMMARY | 2024-03-12 15:23 | XMS_ITS | Clinical Summary ---
Author Organization [facility] [employer] [facility] ity Address [address] [place] [address] Care Team Providers Care Network Account Manager Name Role Phone Unavailable Primary Care Provider [...]
== END 2024-03-11 13:40 | disposition home or self-care (01) ==
LOC: HO.HOSX 13:39
PROVIDERS: Visit Provider Orthopaedic Surgery
DX: M25.562 Pain in left knee (principal); G89.29 Other chronic pain; M25.561 Pain in right knee; Z91.81 History of falling
CPT/HCPCS: 73562; 99202

== ENCOUNTER 2024-04-20 14:09 | Outpatient (AMB) | payer OTHER, SELFPAY ==
--- NOTE | 2024-04-20 14:24 | A.OFFVIS_ITS ---
Vital Signs 04/20/24 14:25 Height 5 ft 9 in Weight 236 lb BMI 34.8 Intake Visit Reasons: Left knee pain Intake Note: Joselo is a 63 year old male who presents with complaints of progressively worsening bilateral knee pains, left greater than right. The patient describes his left knee pain as sharp and severe in nature, 10/10. His pain has gotten worse over the last few years in spite of continued non operative treatments. He has had both cortisone injections and viscosupplementation injections which gave him minimal relief. He has also tried Tylenol and anti-inflammatory medicines which gave him only mild relief. The patient has difficulty walking even short distances because of his left knee pain. At this point his left knee pain is interfering with his activities of daily living and his ability to sleep well through the night. Sat Math Tutor Required: Yes Sat Math Tutor Language: Adult Services Librarian Services: Sat Math Tutor Present Sat Math Tutor Name: ChanteHANNAH/MOHAMUD Allergies No Known Allergies Allergy (Verified 03/11/24 13:33) Medication List - Last Reconciled 04/20/24 by Stanley Serrano MD acetaminophen ER 650 mg PO TID 30 days [adult pull ups As directed] allopurinol 100 mg PO DAILY 90 days ammonium lactate 12% 1 appl topical BID atorvastatin 80 mg PO BEDTIME 90 days blood sugar diagnostic (FreeStyle Lite Strips) Use 1 test strip once a day blood-glucose meter (FreeStyle Lite Meter kit) As directed dupilumab (Dupixent) mg subcut fluoxetine 40 mg PO DAILY 90 days fluticasone propionate 50 mcg/actuation 1 spray intranasal DAILY 30 days hydroxyzine HCl 25 mg PO TID imipramine HCl 25 mg PO BEDTIME 90 days lancets (FreeStyle Lancets) Use 1 lancet once a day lorazepam 1 mg PO BID losartan 25 mg PO DAILY 90 days metformin 500 mg PO BID 90 days metoprolol succinate ER 50 mg PO DAILY 90 days [Non-slip shower mat As directed] omeprazole 20 mg PO DAILY 90 days quetiapine 50 - 100 mg PO BEDTIME PRN tacrolimus 0.1% 1 appl topical BID tolterodine ER 4 mg PO DAILY 90 days walker (Ultra-Light Rollator misc) As directed [facility] Surgical History S/P meniscectomy S/P prostatectomy Family History Mother Essential hypertension Brother Colon cancer Father Pulmonary embolism Social History Housing: Apartment Alcohol intake: current Alcohol intake frequency: holidays/special occasions only Alcohol type: beer Patient Tobacco Use Status: Never used Tobacco e-Cigarette/Vaping Use: Never Used Second Hand Smoke Exposure: No service: No Current occupational status: retired Cognitive needs: No Hearing needs: No Vision needs: Yes Physical Exam Vital Signs: BMI result Body Mass Index 34.8 Const Other: Well-nourished well-developed very friendly male awake alert and oriented x3 in no acute distress Extrem Other: Bilateral lower extremity examination shows good capillary refill, no skin lesions noted, normal sensation light touch Bilateral knee examination shows minimal effusions, palpable crepitus with range of motion, pain with range of motion, range of motion from -3 degrees to 115 degrees, no instability Results Reviewed Results Reviewed: X-rays of the patient's bilateral knee show end-stage degenerative joint disease with grade 4 [id number] arthritis, subchondral sclerosis, osteophyte formation, no acute bony abnormalities Assessment & Plan Assessment & Plan (1) Left knee pain: Code(s): M25.562 - Pain in left knee Category: Medical Qualifiers: Chronicity: chronic Qualified Code(s): M25.562 - Pain in left knee; G89.29 - Other chronic pain (2) Arthritis of left knee: Code(s): M17.12 - Unilateral primary osteoarthritis, left knee Category: Medical Plan Mr. Amilcar Nguyen presents with progressively worsening bilateral knee pains, left greater than right, due to end-stage degenerative joint disease. I had a lengthy discussion with the patient regarding the treatment options. At this point he has failed continued non operative treatments. The risks and benefits of left total knee replacement surgery were discussed at length with the patient. The patient wishes to proceed with surgery. He will be scheduled for next available date. I will see him back 1 week prior to his surgery to answer any final questions that he might have. Feel free to call me at any time should questions regarding his orthopedic management arise. I spent 21 minutes in reviewing the patient's records and imaging studies, seeing the patient and documenting in the medical record. Coding Level of Care Code Est Pt Level 3 (32225) Complex EM visit Add On G2211 Diagnoses Chronic pain of left knee M25.562; G89.29 Chronicity: chronic Arthritis of left knee M17.12
[2024-04-20 14:25] VITALS: BMI 34.8
--- OUTSIDE RECORDS SUMMARY | 2024-04-20 17:52 | XMS_ITS | Clinical Summary ---
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 Name Role Phone Unavailable Primary Care Provider Unavailabl e Social History Tobacco Use Types Packs/Day Years Used Date Smoking Tobacco: Never Assessed Sex and Gender Information Value Date Recorded Sex Assigned at Not on file Legal Sex Male 5:42 PM EST Gender Identity Not on file Sexual Orientation Not on file Plan of Treatment Health Maintenance Due Date Last Done Comments DTaP,Tdap,and Td Vaccines (1 - Tdap) 10/15/1978 Pneumococcal Vaccine: 50+ Ye ars (1 of 1 - PCV) 10/15/2009 Zoster Vaccines (1 of 2) 10/15/2009 Cholesterol [...] patient's age to complete this topic Meningococcal B Vacine Aged Out No lo nger eligible based on patient's age to complete [...]
== END 2024-04-20 14:42 | disposition home or self-care (01) ==
PROVIDERS: PCP Internal Medicine; Visit Provider Orthopaedic Surgery
DX: M17.0 Bilateral primary osteoarthritis of knee (principal)
CPT/HCPCS: 99213; G2211

== ENCOUNTER → 2024-04-20 14:09 | Outpatient (BNVA) | payer OTHER, SELFPAY | PROVIDERS: PCP Internal Medicine; Visit Provider Orthopaedic Surgery | DX: M17.12 Unilateral primary osteoarthritis, left knee (principal); M25.562 Pain in left knee; G89.29 Other chronic pain | CPT/HCPCS: 99212 ==

== ENCOUNTER 2024-05-25 14:35 | Outpatient (AMB) | payer OTHER, SELFPAY ==
[2024-05-25 14:41] VITALS: BP 160/100; BMI 34.4
--- NOTE | 2024-05-25 14:41 | A.OFFPC_ITS ---
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 Assembler Required: No Accompanied by: Self / Same As Patient Allergies No Known Allergies Allergy (Verified 05/25/24 14:58) Medication List - Last Reconciled 05/25/24 by Pura Smith MD acetaminophen ER 650 mg PO TID 30 days [adult pull ups As directed] allopurinol 100 mg PO DAILY 90 days ammonium lactate 12% 1 appl topical BID atorvastatin 80 mg PO BEDTIME 90 days blood sugar diagnostic (FreeStyle Lite Strips) Use 1 test strip once a day blood-glucose meter (FreeStyle Lite Meter kit) As directed dupilumab (Dupixent) mg subcut fluoxetine 40 mg PO DAILY 90 days fluticasone propionate 50 mcg/actuation 1 spray intranasal DAILY 30 days hydroxyzine HCl 25 mg PO TID imipramine HCl 25 mg PO BEDTIME 90 days lancets (FreeStyle Lancets) Use 1 lancet once a day lorazepam 1 mg PO BID losartan 25 mg PO DAILY 90 days metformin 500 mg PO BID 90 days metoprolol succinate ER 50 mg PO DAILY 90 days [Non-slip shower mat As directed] omeprazole 20 mg PO DAILY 90 days quetiapine 50 - 100 mg PO BEDTIME PRN tacrolimus 0.1% 1 appl topical BID tolterodine ER 4 mg PO DAILY 90 days walker (Ultra-Light Rollator misc) As directed Tobacco use date assessed: 05/25/24 Fall risk assessment: 1 Fall in past year Last assessed Fall Risk: 05/25/24 Dental Screening Dental Screen Date: 05/25/24 Did you have a dental visit in the last 12 months?: Yes Did you have a dental problem in the last 6 months where you did not have access to dental care?: No Was dental information given to patient?: Patient has dentist HPI HPI Comments History of Present Illness Details The patient is a 63-year-old male presenting for the management of his Type 2 Diabetes Mellitus, Essential Hypertension, and Hyperlipidemia. He indicates that his diabetes control is stable, with his HbA1c currently at 6.7%, managed by Metformin 500 mg taken twice daily. His blood pressure management includes Losartan 25 mg, with records of readings around 130/80 mmHg. He also uses atorvastatin 80 mg for dyslipidemia. His depression is being managed with fluoxetine at 40 mg, noted by his PHQ-9 score to be mild to moderate, yet insomnia remains an issue. He attributes this partially to noise disturbances from a neighbor impacting his rest. He occasionally uses medications like hydroxyzine and quetiapine (Seroquel) for managing these symptoms. His social habits include occasional alcohol intake without any tobacco use. He reports stable adherence to his prescribed medication regimen. No major changes in his condition or treatment have occurred since the last visit. [facility] Surgical History S/P meniscectomy S/P prostatectomy Family History Mother Essential hypertension Brother Colon cancer Father Pulmonary embolism Social History Housing: Apartment Alcohol intake: current Alcohol intake frequency: holidays/special occasions only Alcohol type: beer Patient Tobacco Use Status: Never used Tobacco e-Cigarette/Vaping Use: Never Used Second Hand Smoke Exposure: No service: No Current occupational status: retired Cognitive needs: No Hearing needs: No Vision needs: Yes Questionnaire PHQ-9 Over the last 2 weeks, how often have you been bothered by any of the following problems? 1. Little interest or pleasure in doing things: nearly every day 2. Feeling down, depressed, or hopeless: more than half the days 3. Trouble falling or staying asleep, or sleeping too much: more than half the days 4. Feeling tired or having little energy: several days 5. Poor appetite or overeating: not at all 6. Feeling bad about yourself - or that you are a failure or have let yourself or your family down: not at all 7. Trouble concentrating on things, such as reading the newspaper or watching television: more than half the days 8. Moving or speaking so slowly that other people could have noticed. Or the opposite - being so fidgety or restless that you have been moving around a lot more than usual: more than half the days 9. Thoughts that you would be better off or of hurting yourself in some way: not at all Total score: 12 Depression Screening Interpretation: Positive Depression Screening Follow-up: Existing condition, In treatment, Community Mental Health Worker F/U and Follow- up Visit Requested Depression Screening Done: Yes 53832 - PHQ-9 Billing: Yes Source: Developed by Drs. Chucky Parker, Penny Henderson, Sandeep Dumas and colleagues, with an educational veronica from [employer]. Thrive Questionnaire Date Thrive assessed: 05/25/24 I am a: Patient What is your living situation today?: I have a steady place to live Within the past 12 months, did the food you bought not last and you didn't have the money to get more?: Never true Within the past 12 months, did you worry whether your food would run out before you got money to buy more?: Never true Do you have trouble paying for medicines?: No Do you have trouble getting transportation to medical appointments?: No Do you have trouble paying your heating and electricity bill?: No Do you have trouble taking care of your child, family member or friend?: No Do you have trouble with day-to-day activities such as bathing, preparing meals, shopping, managing finances, etc.?: No Are you currently unemployed and looking for a job?: No Are you interested in more education?: No Please select the resources that you would like help with: None Currently or been in a relationship where the following occur: No concerns r eported THRIVE Score: 0 AUDIT C Alcohol Use Questionnaire (AUDIT-C) 1. How often do you have a drink containing alcohol?: Monthly or less 2. How many drinks containing alcohol do you have on a typical day when you are drinking?: 1 or 2 3. How often do you have six or more drinks on one occasion?: Never Total Score: 1 Score Reviewed/Action Taken: No EDWARD-7 AMB Questionnaire EDWARD-7 Date EDWARD - 7 assessed: 05/25/24 Feeling nervous, anxious, or on edge: 2 = More than half the days Not being able to stop or control worryin = Not at all Worrying too much about different things: 2 = More than half the days Trouble relaxin = Several days Being so restless that it is hard to sit still: 1 = Several days Becoming easily annoyed or irritable: 2 = More than half the days Feeling afraid as if something awful might happen: 0 = Not at all Total EDWARD-7 score (0-4 normal; 5-9 mild; 10-14 moderate; 15-21 severe): 8 Source: Developed by Drs. Chucky Parker, Penny Henderson, Sandeep Dumas and colleagues, with an educational veronica from [employer]. EDWARD-7 Assessment Billing EDWARD-7 Assessment Tool: EDWARD-7 Assessment 58959 Review of Systems Const All systems reviewed & are unremarkable except as noted in HPI and below Card Denies chest pain at rest, Denies chest pain with activity, Denies edema, Denies irregular heart rhythm, Denies claudication, Denies dyspnea, Denies dyspnea on exertion, Denies orthopnea, Denies paroxysmal nocturnal dyspnea and Denies slow heart rate Resp Denies cough, Denies dyspnea and Denies dyspnea on exertion GI Denies abdominal pain, Denies change in bowel habits, Denies excessive flatus, Denies nausea and Denies vomiting Denies urinary hesitancy, Denies urinary incontinence and Denies urinary urgency Musc Denies abnormal gait, Denies atrophy, Denies deformity and Denies limited range of motion Skin/Breast Denies bleeding lesions, Denies changing lesions and Denies rash Neuro Denies abnormal gait and Denies lack of coordination Physical exam (Primary Care) Vital Signs: Last Vital Signs BP 160/100 H 05/25/24 14:41 BMI result Body Mass Index 34.4 BMI Assessment/Plan discussion: High BMI High, discussed plan: lifestyle, weight reduction, dietary and physical activity Tobacco/Smoking Status: Tobacco use Status Tobacco use date assessed 05/25/24 05/25/24 14:49 Patient Tobacco Use Status Never used Tobacco 05/25/24 14:49 e-Cigarette/Vaping Use Never Used 05/25/24 14:49 PHQ-9: PHQ-9 Score PHQ-9: Total score 12 05/25/24 15:03 Depression Screening Interpretation: Positive Depression Screening Follow-up: Existing condition, In treatment, Community Mental Health Worker F/U and Follow- up Visit Requested Thrive Assessment: Date of Thrive Assessment Date Thrive assessed 05/25/24 05/25/24 14:49 Currently or been in a relationship where the following occur: No concerns reported Resp Effort & Inspection: normal respiratory effort Auscultation: clear to auscultation bilaterally Cardio Jugular venous distension: no JVD Rate: regular rate Rhythm: regular rhythm Heart sounds: S1 normal heart sound present and S2 normal heart sound present Extrem General: Yes full ROM Results AMB Hemoglobin A1c AMB Hemoglobin A1c 6.2 % Last Edit by HANNAH Carlisle on 05/25/24 14:5 2 Results Reviewed Results Reviewed: Laboratory Last Values Hgb A1c (Clinic) 6.2 % (4.0-6.0) H 05/25/24 14:40 Coding Level of Care Code Est Pt Level 4 (82457) Complex EM visit Add On G2211 Diagnoses Type 2 diabetes mellitus with hyperglycemia, without long-term current use of insulin E11.65 Diabetes mellitus type: type 2 Diabetes mellitus half-way insulin use: without half-way use Diabetes mellitus complication status: with hyperglycemia EDWARD (generalized anxiety disorder) F41.1 Moderate major depression F32.1 Essential hypertension I10 Pure hypercholesterolemia E78.00 Additional Codes EDWARD-7 Assessment Billing - EDWARD-7 Assessment Tool: EDWARD-7 Assessment 69292 ([id number]) PHQ-9 - 68835 - PHQ-9 Billing: Yes ([id number]) Time Spent (min) 23 Assessment & Plan Assessment & Plan (1) Diabetes mellitus: Code(s): E11.9 - Type 2 diabetes mellitus without complications Category: Medical Qualifiers: Diabetes mellitus type: type 2 Diabetes mellitus rn long term care insulin use: without rn long term care use Diabetes mellitus complication status: with hyperglycemia Qualified Code(s): E11.65 - Type 2 diabetes mellitus with hyperglycemia (2) EDWARD (generalized anxiety disorder): Code(s): F41.1 - Generalized anxiety disorder Category: Medical (3) Moderate major depression: Code(s): F32.1 - Major depressive disorder, single episode, moderate Category: Medical (4) Essential hypertension: Code(s): I10 - Essential (primary) hypertension Category: Medical (5) Pure hypercholesterolemia: Code(s): E78.00 - Pure hypercholesterolemia, unspecified Category: Medical Plan The patient's Type 2 Diabetes Mellitus is controlled with Metformin, achieving a stable HbA1c. Losartan maintains his blood pressure adequately. The patient will continue atorvastatin for Hyperlipidemia. Depression, under fluoxetine management, may need further evaluation should symptoms persist. His sleep disturbances, likely impacted by external noise, are symptomatically managed. The patient is advised to regularly monitor blood pressure and will complete labs in the coming months for comprehensive metabolic assessment. Patient was informed and verbally consented to the use of an ambient scribe for clinic note documentation during this visit. I discussed with the patient the current management of his Type 2 Diabetes Mellitus, noting his stable HbA1c, and emphasized ongoing monitoring of hypertension and lipid profiles. We talked about the potential need for psychiatric evaluation if depressive symptoms or insomnia become more severe. I reviewed the lifestyle and environmental factors impacting his sleep and encouraged continued blood pressure checks. We agreed on the timing for the next set of lab tests. The patient consented to the management plan as we have outlined and expressed understanding of all discussed strategies. Orders: Orders Lipid Panel 4 Months E78.5 - Hyperlipidemia, unspecified Microalbumin, Random (w Creat) 4 Months R80.9 - Proteinuria, unspecified AMB Hemoglobin A1c Today E11.65 - Type 2 diabetes mellitus with hyperglycemia Vitamin D 25-OH Total 4 Months E55.9 - Vitamin D deficiency, unspecified Comprehensive [place]. Panel Fast 4 Months E11.65 - Type 2 diabetes mellitus with hyperglycemia Patient Instructions: - Continue Metformin 500 mg twice daily for diabetes management. - Maintain Losartan 25 mg regimen for blood pressure. - Take atorvastatin 80 mg as prescribed for cholesterol. - Use fluoxetine 40 mg for depression. - Regularly monitor your blood pressure. - Schedule lab appointments in four months for monitoring kidney, liver, glucose, and cholesterol levels. - Continue using hydroxyzine and quetiapine as needed for sleep disturbances. - Avoid tobacco and limit alcohol to infrequent family events.
--- OUTSIDE RECORDS SUMMARY | 2024-05-25 17:42 | XMS_ITS | Clinical Summary ---
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
== END 2024-05-25 15:09 | disposition home or self-care (01) ==
LOC: HO.HMCH 14:35
PROVIDERS: PCP Internal Medicine; Visit Provider Internal Medicine
DX: E11.65 Type 2 diabetes mellitus with hyperglycemia (principal); F41.1 Generalized anxiety disorder; F32.1 Major depressive disorder, single episode, moderate; I10 Essential (primary) hypertension; E78.00 Pure hypercholesterolemia, unspecified

== ENCOUNTER → 2024-05-25 14:35 | Outpatient (BNVA) | payer OTHER, SELFPAY | PROVIDERS: PCP Internal Medicine; Visit Provider Internal Medicine | DX: E11.65 Type 2 diabetes mellitus with hyperglycemia (principal); F41.1 Generalized anxiety disorder; I10 Essential (primary) hypertension; E78.5 Hyperlipidemia, unspecified; F32.1 Major depressive disorder, single episode, moderate; E78.00 Pure hypercholesterolemia, unspecified; R80.9 Proteinuria, unspecified; E55.9 Vitamin D deficiency, unspecified; Z79.84 Long term (current) use of oral hypoglycemic drugs; Z79.899 Other long term (current) drug therapy | CPT/HCPCS: 83036; 96127; 99212 ==

== ENCOUNTER 2024-08-11 11:16 | Outpatient (REF) | payer OTHER, SELFPAY ==
[2024-08-11 13:40] LABS: Hematocrit 40.5 % (42.0-52.0); Mean Corpuscular HGB Conc 34.6 g/dl (31.0-36.0); Mean Corpuscular Hemoglobin 30.7 pg (27.0-33.0); Mean Corpuscular Volume 88.8 fL (80.0-98.0); Mean Platelet Volume 9.2 fL (9.4-12.4); Platelet Count 201 X10*3/uL (160-400); Red Blood Count 4.56 X10*6/uL (4.60-5.80); White Blood Count 5.3 X10*3/uL (4.8-10.8)
[2024-08-11 14:00] LABS: Estimated Average Glucose 123 mg/dL; Hemoglobin A1C 151.5027 umol/L; Hemoglobin A1c % 5.9 % (<6.0)
[2024-08-11 14:36] LABS: Alanine Aminotransferase 50 U/L (0-40); Albumin Level 4.8 g/dL (3.5-5.0); Alkaline Phosphatase 119 U/L (39-117); Anion Gap 16 (12-20); Aspartate Amino Transferase 83 U/L (5-37); Bilirubin Total 1.2 mg/dL (0.0-1.0); Blood Urea Nitrogen 7 mg/dL (9-16); Calcium 9.3 mg/dL (8.4-10.2); Carbon Dioxide 28 mmol/L (22-29); Chloride 98 mmol/L (96-108); Cholesterol 218 mg/dL (<200); Estimated Glomerular Filt Rate > 60; Glucose Fasting 134 mg/dL (60-99); Glucose Random 133 mg/dL (60-115); HDL Cholesterol 73 mg/dL (>40); Iron 112 mcg/dL (45-160); LDL Cholesterol Calculated 106 mg/dL (<100); Percent Iron Saturation 36 % (15-50); Potassium 3.2 mmol/L (3.3-5.1); Sodium 139 mmol/L (135-145); Total Iron Binding Capacity 309 mcg/dL (228-428); Total Protein 7.9 g/dL (6.5-8.0); Triglycerides 197 mg/dL (<150); Unsaturated Iron Binding 197 ug/dL; Vitamin D 25-OH Total 13.8 ng/mL (>30)
[2024-08-11 14:37] LABS: Ferritin 576 ng/mL (20-250); TSH reflex Free T4 3.31 uIU/mL (0.32-4.0)
[2024-08-11 14:38] LABS: Creatinine Urine 231.28 mg/dL; Microalbum/Creatinine Ratio Ur 14.7 ug/mg cr (<30)
[2024-08-12 08:05] LABS: Alpha 1 Anti-trypsin 139 mg/dL (83-199); Ceruloplasmin 21 mg/dL (14-30); Immunoglobulin A 255 mg/dL (70-320)
[2024-08-12 08:29] LABS: HBS Num1 > 1000.00 mIU/mL (0-7.99); HBc Num1 0.07 S/CO (0.00-0.79); HIV AB/AG Nonreactive (Nonreactive); HIV Num 1 0.08 S/CO (0.00-0.99); Hepatitis B Core Antibody Nonreactive (Nonreactive); Hepatitis B Surface Antigen Negative (Negative); ~HepC Num1 0.19 S/CO (0.00-0.79); ~Hepatitis B Surface Antibody REACTIVE (Nonreactive); ~Hepatitis C Antibody Nonreactive (Nonreactive)
[2024-08-12 12:14] LABS: Alpha Fetoprotein 3.2 ng/mL (<6.1)
[2024-08-12 22:39] LABS: Transglutaminase IgA <1.0 U/mL
[2024-08-13 08:58] LABS: Hepatitis A Antibody IgG REACTIVE (Nonreactive); ~Hepatitis A Antibody IgG 9.61 S/CO (0.00-0.99)
[2024-08-13 14:08] LABS: Mitochondrial Antibodies NEGATIVE (NEGATIVE)
[2024-08-14 10:58] LABS: Liver Kidney Microsomal Ab <=20.0 U (<=20.0)
[2024-08-16 03:11] LABS: Smooth Muscle Antibody <20 U (<20)
[2024-08-17 11:38] LABS: Phosphatidylethanol 16:0-18:1 >400; Phosphatidylethanol 16:0-18:2 >400
== END 2024-08-11 11:17 | disposition home or self-care (01) ==
LOC: HO.LAB 11:16
PROVIDERS: PCP Internal Medicine; Visit Provider Internal Medicine
DX: E78.5 Hyperlipidemia, unspecified (principal); E11.65 Type 2 diabetes mellitus with hyperglycemia; R80.9 Proteinuria, unspecified; E55.9 Vitamin D deficiency, unspecified; R79.89 Other specified abnormal findings of blood chemistry
CPT/HCPCS: 36415; 80053; 80061; 80321; 82043; 82103; 82105; 82306; 82390; 82570; 82728; 82784; 83036; 83540; 84443; 85027; 85610; 86015; 86364; 86376; 86381; 86704; 86706; 86708; 86803; 87340; 87389

== ENCOUNTER 2024-09-22 09:15 | Outpatient (AMB) | payer OTHER, SELFPAY ==
[2024-09-22 09:28] VITALS: BP 142/96; PULSE 81; O2SAT 96; BMI 33.6
--- NOTE | 2024-09-22 09:28 | A.OFFPC_ITS ---
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: No Accompanied by: Self / Same As Patient Allergies No Known Allergies Allergy (Verified 09/22/24 09:40) Medication List - Last Reconciled 09/22/24 by Pura Smith MD acetaminophen ER 650 mg PO TID 30 days [adult pull ups As directed] allopurinol 100 mg PO DAILY 90 days ammonium lactate 12% 1 appl topical BID atorvastatin 80 mg PO BEDTIME 90 days blood sugar diagnostic (FreeStyle Lite Strips) Use 1 test strip once a day blood-glucose meter (FreeStyle Lite Meter kit) As directed cholecalciferol (vitamin D3) 50 mcg PO DAILY 90 days dupilumab (Dupixent) mg subcut fluoxetine 40 mg PO DAILY 90 days fluticasone propionate 50 mcg/actuation 1 spray intranasal DAILY 30 days hydroxyzine HCl 25 mg PO TID imipramine HCl 25 mg PO BEDTIME 90 days lancets (FreeStyle Lancets) Use 1 lancet once a day lorazepam 1 mg PO BID losartan 25 mg PO DAILY 90 days metformin 500 mg PO BID 90 days metoprolol succinate ER 50 mg PO DAILY 90 days [Non-slip shower mat As directed] omeprazole 20 mg PO DAILY 90 days quetiapine 50 - 100 mg PO BEDTIME PRN tacrolimus 0.1% 1 appl topical BID tolterodine ER 4 mg PO DAILY 90 days vibegron (Gemtesa) 75 mg PO DAILY walker (Ultra-Light Rollator misc) As directed Tobacco use date assessed: 09/22/24 Fall risk assessment: No Falls in past year Last assessed Fall Risk: 09/22/24 Dental Screening Dental Screen Date: 09/22/24 Did you have a dental visit in the last 12 months?: Yes Did you have a dental problem in the last 6 months where you did not have access to dental care?: No Was dental information given to patient?: Patient has dentist HPI HPI Comments History of Present Illness Details The patient is a 63-year-old male presenting for an annual physical examination. He has a history of hypertension, currently managed with losartan and metoprolol, although he has not received the latter recently. His blood pressure was not elevated during this visit. The patient also has hyperlipidemia, for which he is taking atorvastatin 80 mg, but his cholesterol levels remain elevated. A new medication will be added to his regimen to better control his cholesterol levels. He reports a history of depression, managed with fluoxetine 40 mg, and continues to see his psychiatrist. His PHQ-9 score is 12, indicating moderate depression. The patient has gout, for which he takes allopurinol 100 mg, and reports no recent gout attacks. He experiences urinary incontinence and uses diapers for management. The patient has a vitamin D deficiency, and his vitamin D supplementation will be increased. Preventative care measures include colon cancer screening, which he has undergone previously with normal results. His brother has a history of colon cancer, necessitating screenings every five years. [facility] Surgical History Hx of colonoscopy History of esophagogastroduodenoscopy (EGD) S/P meniscectomy S/P prostatectomy Family History Mother Essential hypertension Brother Colon cancer Father Pulmonary embolism Social History (Updated 09/22/24 @ 09:48 by Pura Smith MD) Housing: Apartment Alcohol intake: current Alcohol intake frequency: a few times a month Alcohol type: beer Patient Tobacco Use Status: Never used Tobacco e-Cigarette/Vaping Use: Never Used Second Hand Smoke Exposure: No service: No Current occupational status: retired Cognitive needs: No Hearing needs: No Vision needs: Yes Questionnaire PHQ-9 Over the last 2 weeks, how often have you been bothered by any of the following problems? 1. Little interest or pleasure in doing things: nearly every day 2. Feeling down, depressed, or hopeless: more than half the days 3. Trouble falling or staying asleep, or sleeping too much: more than half the days 4. Feeling tired or having little energy: several days 5. Poor appetite or overeating: not at all 6. Feeling bad about yourself - or that you are a failure or have let yourself or your family down: not at all 7. Trouble concentrating on things, such as reading the newspaper or watching television: more than half the days 8. Moving or speaking so slowly that other people could have noticed. Or the opposite - being so fidgety or restless that you have been moving around a lot more than usual: more than half the days 9. Thoughts that you would be better off or of hurting yourself in some way: not at all Total score: 12 Depression Screening Interpretation: Positive Depression Screening Follow-up: Existing condition, In treatment, Community Mental Health Worker F/U and Follow- up Visit Requested Depression Screening Done: Yes 17569 - PHQ-9 Billing: Yes Source: Developed by Drs. Chucky Parker, Penny Henderson, Sandeep Dumas and colleagues, with an educational veronica from [employer]. Thrive Questionnaire Date Thrive assessed: 09/22/24 I am a: Patient What is your living situation today?: I have a steady place to live Within the past 12 months, did the food you bought not last and you didn't have the money to get more?: Never true Within the past 12 months, did you worry whether your food would run out before you got money to buy more?: Never true Do you have trouble paying for medicines?: No Do you have trouble getting transportation to medical appointments?: No Do you have trouble paying your heating and electricity bill?: No Do you have trouble taking care of your child, family member or friend?: No Do you have trouble with day-to-day activities such as bathing, preparing meals, shopping, managing finances, etc.?: No Are you currently unemployed and looking for a job?: No Are you interested in more education?: No Please select the resources that you would like help with: None Currently or been in a relationship where the following occur: No concerns reported THRIVE Score: 0 AUDIT C Alcohol Use Questionnaire (AUDIT-C) 1. How often do you have a drink containing alcohol?: Monthly or less 2. How many drinks containing alcohol do you have on a typical day when you are drinking?: 1 or 2 3. How often do you have six or more drinks on one occasion?: Never Total Score: 1 Score Reviewed/Action Taken: No EDWARD-7 AMB Questionnaire EDWARD-7 Date EDWARD - 7 assessed: 09/22/24 Feeling nervous, anxious, or on edge: 2 = More than half the days Not being able to stop or control worryin = Not at all Worrying too much about different things: 2 = More than half the days Trouble relaxin = Several days Being so restless that it is hard to sit still: 1 = Several days Becoming easily annoyed or irritable: 2 = More than half the days Feeling afraid as if something awful might happen: 0 = Not at all Total EDWARD-7 score (0-4 normal; 5-9 mild; 10-14 moderate; 15-21 severe): 8 Source: Developed by Drs. Chucky Parker, Penny Henderson, Sandeep Dumas and colleagues, with an educational veronica from [employer]. EDWARD-7 Assessment Billing EDWARD-7 Assessment Tool: EDWARD-7 Assessment 24336 Review of Systems Const All systems reviewed & are unremarkable except as noted in HPI and below Card Denies chest pain at rest, Denies chest pain with activity, Denies edema, Denies irregular heart rhythm, Denies claudication, Denies dyspnea, Denies dyspnea on exertion, Denies orthopnea, Denies paroxysmal nocturnal dyspnea and Denies slow heart rate Resp Denies cough, Denies dyspnea and Denies dyspnea on exertion GI Denies abdominal pain, Denies change in bowel habits, Denies excessive flatus, Denies nausea and Denies vomiting Denies urinary hesitancy, Denies urinary incontinence and Denies urinary urgency Musc Denies abnormal gait, Denies atrophy, Denies deformity and Denies limited range of motion Skin/Breast Denies bleeding lesions, Denies changing lesions and Denies rash Neuro Denies abnormal gait, Denies behavioral changes and Denies lack of coordination Psych Denies behavioral changes Physical exam (Primary Care) Vital Signs: Last Vital Signs Pulse 81 09/22/24 09:28 BP 142/96 H 09/22/24 09:28 Pulse Ox 96 09/22/24 09:28 Oxygen Delivery Method Room Air 09/22/24 09:28 BMI result Body Mass Index 33.6 BMI Assessment/Plan discussion: High BMI High, discussed plan: lifestyle, weight reduction, dietary and physical activity Tobacco/Smoking Status: Tobacco use Status Tobacco use date assessed 09/22/24 09/22/24 09:33 Patient Tobacco Use Status Never used Tobacco 09/22/24 09:33 e-Cigarette/Vaping Use Never Used 09/22/24 09:33 PHQ-9: PHQ-9 Score PHQ-9: Total score 12 09/22/24 09:33 Depression Screening Interpretation: Positive Depression Screening Follow-up: Existing condition, In treatment, Community Mental Health Worker F/U and Follow- up Visit Requested Thrive Assessment: Date of Thrive Assessment Date Thrive assessed 09/22/24 09/22/24 09:33 Currently or been in a relationship where the following occur: No concerns reported HENFL Head: Yes normal to inspection, Yes normocephalic and Yes atraumatic Ears: external ears normal Eyes General: appearance normal, both eyes and all related structures Eyelids: Yes eyelids normal Conjunctivae: conjunctivae normal Neck Neck: Yes normal visual inspection and Yes supple Resp Effort & Inspection: normal respiratory effort Auscultation: clear to auscultation bilaterally Cardio Jugular venous distension: no JVD Rate: regular rate Rhythm: regular rhythm Heart sounds: S1 normal heart sound present and S2 normal heart sound present GI Inspection: Yes normal to inspection Palpation (GI): Soft to palpation and nontender Auscultation: normal bowel sounds Skin General skin exam: no rashes or lesions noted Neuro General: no focal motor deficits Extrem General: Yes full ROM Psych Appearance: grossly normal Coding Level of Care Code Est Pt Prev Care 40-64y(40484) Diagnoses Physical exam Z00.00 Type 2 diabetes mellitus with hyperglycemia, without long-term current use of insulin E11.65 Diabetes mellitus type: type 2 Diabetes mellitus long term acute care registered nurse insulin use: without long term acute care registered nurse use Diabetes mellitus complication status: with hyperglycemia Moderate major depression F32.1 Additional Codes EDWARD-7 Assessment Billing - EDWARD-7 Assessment Tool: EDWARD-7 Assessment [id number] ([id number]) PHQ-9 - 46123 - PHQ-9 Billing: Yes ([id number]) Time Spent (min) 30 Assessment & Plan Assessment & Plan (1) Physical exam: Code(s): Z00.00 - Encounter for general adult medical examination without abnormal findings Category: Medical (2) Diabetes mellitus: Code(s): E11.9 - Type 2 diabetes mellitus without complications Category: Medical Qualifiers: Diabetes mellitus type: type 2 Diabetes mellitus long term acute care registered nurse insulin use: without long term acute care registered nurse use Diabetes mellitus complication status: with hyperglycemia Qualified Code(s): E11.65 - Type 2 diabetes mellitus with hyperglycemia (3) Moderate major depression: Code(s): F32.1 - Major depressive disorder, single episode, moderate Category: Medical Plan The patient's hypertension will continue to be managed with losartan and metoprolol, with a follow-up blood pressure check scheduled in a few weeks to ensure control. For hyperlipidemia, atorvastatin 80 mg will be continued, and an additional medication will be prescribed to better manage cholesterol levels. The patient's depression will be monitored, and he is advised to continue his current regimen of fluoxetine 40 mg while maintaining regular psychiatric follow-ups. Gout management with allopurinol 100 mg will be maintained, as the patient reports no recent flare-ups. Urinary incontinence will continue to be managed with the use of diapers. Vitamin D supplementation will be increased to address the deficiency. Preventative care includes scheduling a colonoscopy every five years due to family history of colon cancer. Patient was informed and verbally consented to the use of an ambient scribe for clinic note documentation during this visit. Orders: Orders Microalbumin, Random (w Creat) 4 Months R80.9 - Proteinuria, unspecified Vitamin D 25-OH Total 4 Months E55.9 - Vitamin D deficiency, unspecified Lipid Panel 4 Months E78.5 - Hyperlipidemia, unspecified Comprehensive [place]. Panel Fast 4 Months E11.65 - Type 2 diabetes mellitus with hyperglycemia Medications: New ezetimibe 10 mg PO DAILY 90 tabs 0RF 90 days
--- OUTSIDE RECORDS SUMMARY | 2024-09-22 09:34 | XMS_ITS | Clinical Summary ---
[facility] [address] [place] [address] Care Team Providers Care Blood Splatter Analyst Name Role Phone Unavailable Primary Care Provider [...] Panel) 01/19/2022 Colorectal Cancer Screening: Colonoscopy 01/19/2022 HIV Screening 01/19/2022 Hepatitis C Screening 01/19/2022 Social Influencers of Health Screening 01/19/2022 COVID-19 Vaccine (2 - 2023-2 5 season) 2023 05/04/2020 Depression Screening 02/18/2024 Influenza Vaccine (#1) 2024 RSV Immunization Adult Patie nts (1 - [...]
== END 2024-09-22 09:56 | disposition home or self-care (01) ==
LOC: HO.HMCH 09:16
PROVIDERS: PCP Internal Medicine; Visit Provider Internal Medicine
DX: Z00.00 Encounter for general adult medical examination without abnormal findings (principal); E11.65 Type 2 diabetes mellitus with hyperglycemia; F32.1 Major depressive disorder, single episode, moderate

== ENCOUNTER → 2024-09-22 09:15 | Outpatient (BNVA) | payer OTHER, SELFPAY | PROVIDERS: PCP Internal Medicine; Visit Provider Internal Medicine | DX: Z00.00 Encounter for general adult medical examination without abnormal findings (principal); I10 Essential (primary) hypertension; E78.5 Hyperlipidemia, unspecified; F32.A Depression, unspecified; M10.9 Gout, unspecified; R32 Unspecified urinary incontinence; E55.9 Vitamin D deficiency, unspecified; E11.65 Type 2 diabetes mellitus with hyperglycemia; F32.1 Major depressive disorder, single episode, moderate; R80.9 Proteinuria, unspecified; Z79.899 Other long term (current) drug therapy | CPT/HCPCS: 96127; 99396 ==

== ENCOUNTER 2024-11-04 12:13 | Outpatient (REF) | payer OTHER, SELFPAY ==
[2024-11-04 14:10] LABS: Alanine Aminotransferase 53 U/L (0-40); Albumin Level 4.3 g/dL (3.5-5.0); Alkaline Phosphatase 104 U/L (39-117); Aspartate Amino Transferase 79 U/L (5-37); Cholesterol 163 mg/dL (<200); HDL Cholesterol 72 mg/dL (>40); Total Protein 7.0 g/dL (6.5-8.0); Triglycerides 201 mg/dL (<150)
--- OUTSIDE RECORDS SUMMARY | 2024-11-04 14:28 | XMS_ITS | Clinical Summary ---
[facility] Organization [facility] Address [address] [place] [address] Care Team Providers Care Botany Teacher Name Role Phone Unavailable Primary Care Provider [...] 10/15/2009 Zoster Vaccines (1 of 2) 10/15/2009 Abdominal Aortic Aneurysm (A AA) Screen 01/19/2022 Cholesterol Screening (Lipid Panel) 01/19/2022 Colorectal Cancer Screening: Colonoscopy 01/19/2022 Hepatitis C Screening 01/19/2022 Social Influencers of Health Screening 01/19/2022 Depression Screening 02/18/2024 Falls Risk Assessment 10/15/2024 COVID-19 Vaccine (2 - 2024-2 6 season) 2024 05/04/2020 Influenza Vaccine (#1) 2024 RSV Immunization Adult [...]
== END 2024-11-04 12:14 | disposition home or self-care (01) ==
LOC: HO.LAB 12:13
PROVIDERS: PCP Internal Medicine; Visit Provider Internal Medicine
DX: R74.01 Elevation of levels of liver transaminase levels (principal); R79.89 Other specified abnormal findings of blood chemistry
CPT/HCPCS: 36415; 80061; 80076

== ENCOUNTER 2024-12-01 09:33 | Outpatient (REF) | payer OTHER, SELFPAY ==
--- NOTE | ~2024-12-01 | US_ITS ---
CLINICAL HISTORY: R79.89 - ELEVATED LIVER FUNCTION TESTS Ultrasound of the abdomen Comparison: 03/02/24 Findings: The liver is enlarged, measuring 18.2cm. Increased echogenicity with focal fatty sparing at the gallbladder fossa. Normal flow is visualized within the portal vein. No intrahepatic biliary ductal dilatation. No cholelithiasis, however there is sludge. No gallbladder wall thickening or pericholecystic fluid. Negative Franco's sign. The common bile duct is normal, measuring 0.3cm. Unremarkable limited evaluation of the pancreas. The right kidney is normal in echogenicity and size, measuring 11.4cm. No hydronephrosis. There is nephrolithiasis. The left kidney is normal echogenicity and size, measuring 10.8cm. No nephrolithiasis or hydronephrosis. The spleen is without focal lesions and normal in size, measuring 9.3cm. Left upper quadrant splenule measuring 1.1 x 1.3 x 0.9 cm The aorta and IVC are unremarkable. No ascites. Impression: Hepatomegaly with hepatic steatosis. This document has been electronically signed by: Jennifer Vann MD on 12/02/2024 15:01:43
--- OUTSIDE RECORDS SUMMARY | 2024-12-01 10:56 | XMS_ITS | Clinical Summary ---
Author Organization [facility] ity Address [address] [place] [address] Care Team Providers Care Metal Fabricating Inspector Name Role Phone Unavailable Primary Care Provider Unavailabl e Social History Tobacco Use Types Packs/Day Years Used Date Smoking Tobacco: Never Assessed Sex and Gender Information Value Date Recorded Sex Assigned at Not on file Legal Sex Male 5:42 PM EST Gender Identity Not on file Sexual Orientation Not on file Plan of Treatment Health Maintenance Due Date Last Done Comments Colorectal Cancer Screening: Colonoscopy 1960 Pneumococcal Vaccine: 50+ Years (1 of 1 - PCV) 10/15/2009 Zoster Vaccines (1 of 2) 10/15/2009 Abdominal Aortic Aneurysm (AAA) Screen 01/19/2022 Cholesterol Screening (Lipid Panel) 01/19/2022 Hepatitis C Screening 01/19/2022 Social Influencers of Health Screening 01/19/2022 Depression Screening 02/18/2024 Falls Risk Assessment 10/15/2024 COVID-19 Vaccine (4 - 2024-2 6 season) 2024 12/21/2020, 05/25/2020, 05/04/2020 Influenza Vaccine (#1) 2024 , 02/29/2020, 12/21/2013 Hypertension/CHF/CAD Annual BMP Blood Test 11/24/2024 DTaP,Tdap,and Td Vaccines (3 - Td or Tdap) 01/25/2028 01/24/2018, 11/09/2015 RSV Immunization Adult Patients (1 - 1-dose 75+ series) 10/15/2034 HIB [...] to complete this topic RSV Immunization Patients Under 20 months Aged Out No longer eligible b ased on patient's age to complete this topic Varicella Vaccines Aged Out No longer eligible based on patient's age to complete this topic
== END 2024-12-01 09:34 | disposition home or self-care (01) ==
LOC: HO.US 09:33
PROVIDERS: PCP Internal Medicine; Visit Provider Internal Medicine
DX: R79.89 Other specified abnormal findings of blood chemistry (principal)
CPT/HCPCS: 76700

== ENCOUNTER → 2024-12-01 09:36 | Outpatient (BNV) | payer OTHER, SELFPAY | PROVIDERS: PCP Internal Medicine; Visit Provider Radiology Diagnostic Radiology | DX: R16.0 Hepatomegaly, not elsewhere classified (principal); K76.0 Fatty (change of) liver, not elsewhere classified | CPT/HCPCS: 76700 ==

== ENCOUNTER 2025-02-02 09:40 | Outpatient (AMB) | payer OTHER, SELFPAY ==
[2025-02-02 09:47] VITALS: BP 190/90; PULSE 91; RESP 16; TEMP 36.5; O2SAT 95; BMI 33.4
--- NOTE | 2025-02-02 09:47 | MHC.PC.OV ---
Vital Signs 02/02/25 09:47 02/02/25 10:55 Height 5 ft 9 in Weight 226 lb BMI 33.4 BP 190/90 H 160/90 H Blood Pressure Location Lt brachial Lt brachial Position Sitting Sitting Respiration 16 Pulse 91 Pulse Source Pulse Oximeter Temp 97.7 F Temp Source Temporal Artery Scan Pulse Oximetry (%) 95 Oxygen Delivery Method Room Air Intake Visit Reasons: dm [employer] Service Representative Required: No Accompanied by: Self / Same As Patient Allergies No Known Allergies Allergy (Verified 01/12/25 13:36) Medication List - Last Reconciled 02/02/25 by Pura Smith MD acetaminophen ER 650 mg PO TID 30 days [adult pull ups As directed] allopurinol 100 mg PO DAILY 90 days ammonium lactate 12% 1 appl topical BID atorvastatin 80 mg PO BEDTIME 90 days blood sugar diagnostic (FreeStyle Lite Strips) Use 1 test strip once a day blood-glucose meter (FreeStyle Lite Meter kit) As directed cholecalciferol (vitamin D3) 50 mcg PO DAILY 90 days dupilumab (Dupixent) 300 mg subcut .twiceper month ezetimibe 10 mg PO DAILY 90 days fluoxetine 40 mg PO DAILY 90 days fluticasone propionate 50 mcg/actuation 1 spray intranasal DAILY 30 days hydroxyzine HCl 25 mg PO TID imipramine HCl 25 mg PO BEDTIME 90 days lancets (FreeStyle Lancets) Use 1 lancet once a day lorazepam 1 mg PO BID losartan 25 mg PO DAILY 90 days metformin 500 mg PO BID 90 days metoprolol succinate ER 50 mg PO DAILY 90 days [Non-slip shower mat As directed] omeprazole 20 mg PO DAILY 90 days polyethylene glycol 3350 (Miralax) 238 grams PO ONCE quetiapine 50 - 100 mg PO BEDTIME PRN tacrolimus 0.1% 1 appl topical BID tolterodine ER 4 mg PO DAILY 90 days vibegron (Gemtesa) 75 mg PO DAILY walker (Ultra-Light Rollator mis) As directed Tobacco use date assessed: 09/22/24 Fall risk assessment: No Falls in past year Last assessed Fall Risk: 02/02/25 Dental Screening Dental Screen Date: 02/02/25 Did you have a dental visit in the last 12 months?: Yes Did you have a dental problem in the last 6 months where you did not have access to dental care?: No Was dental information given to patient?: Patient has dentist HPI HPI Comments History of Present Illness Details The patient is a 64 year old male presenting for a follow-up visit for management of his chronic conditions, including hypertension and diabetes. He reports no known drug allergies. His chronic conditions include hypertension managed with losartan 25 mg, which he took today, though his blood pressure remains elevated. For diabetes, he takes metformin 500 mg twice daily, and his last hemoglobin A1c in July was well-controlled at 5.9%. His hyperlipidemia is treated with atorvastatin 80 mg and ezetimibe 10 mg, and his last cholesterol panel in October was noted to be very good. The patient has a history of gout, managed with allopurinol 100 mg, and has not experienced any episodes in recent months. He is treated for allergies with Dupixent, which is administered as an injection twice a month by a doctor. He developed sinus congestion yesterday. For depression, he takes fluoxetine 40 mg and imipramine and is followed by a psychiatrist, with a recent PHQ-9 score of 14 indicating recurrent moderate depression. He has a history of elevated liver enzymes and is followed by gastroenterology for fatty liver disease. His renal function is noted to be good. Other medications include Tylenol, hydroxyzine, lorazepam, metoprolol, omeprazole, a nasal spray, and Gemtesa prescribed by a urologist. He has never smoked and drinks alcohol rarely. [facility] Surgical History Hx of colonoscopy History of esophagogastroduodenoscopy (EGD) S/P meniscectomy S/P prostatectomy Family History Mother Essential hypertension Brother Colon cancer Father Pulmonary embolism Social History Housing: Apartment Alcohol intake: current Alcohol intake frequency: a few times a month Alcohol type: beer Patient Tobacco Use Status: Never used Tobacco e-Cigarette/Vaping Use: Never Used Second Hand Smoke Exposure: No service: No Current occupational status: retired Cognitive needs: No Hearing needs: No Vision needs: Yes Questionnaire PHQ-9 Over the last 2 weeks, how often have you been bothered by any of the following problems? 1. Little interest or pleasure in doing things: more than half the days 2. Feeling down, depressed, or hopeless: more than half the days 3. Trouble falling or staying asleep, or sleeping too much: more than half the days 4. Feeling tired or having little energy: more than half the days 5. Poor appetite or overeating: more than half the days 6. Feeling bad about yourself - or that you are a failure or have let yourself or your family down: more than half the days 7. Trouble concentrating on things, such as reading the newspaper or watching television: more than half the days 8. Moving or speaking so slowly that other people could have noticed. Or the opposite - being so fidgety or restless that you have been moving around a lot more than usual: not at all 9. Thoughts that you would be better off or of hurting yourself in some way: not at all Total score: 14 Depression Screening Interpretation: Positive Depression Screening Follow-up: Existing condition, In treatment, Community Mental Health Worker F/U and Follow-up Visit Requested Depression Screening Done: Yes Source: Developed by Drs. Chucky Parker, Penny Henderson, Sandeep Dumas and colleagues, with an educational veronica from [employer]. Thrive Questionnaire Date Thrive assessed: 02/02/25 I am a: Patient What is your living situation today?: I have a steady place to live Within the past 12 months, did the food you bought not last and you didn't have the money to get more?: Never true Within the past 12 months, did you worry whether your food would run out before you got money to buy more?: Never true Do you have trouble paying for medicines?: No Do you have trouble getting transportation to medical appointments?: No Do you have trouble paying your heating and electricity bill?: No Do you have trouble taking care of your child, family member or friend?: No Do you have trouble with day-to-day activities such as bathing, preparing meals, shopping, managing finances, etc.?: No Are you currently unemployed and looking for a job?: Yes Are you interested in more education?: No Please select the resources that you would like help with: None Currently or been in a relationship where the following occur: No concerns reported THRIVE Score: 0 AUDIT C Alcohol Use Questionnaire (AUDIT-C) 1. How often do you have a drink containing alcohol?: Never Total Score: 0 Score Reviewed/Action Taken: No EDWARD-7 AMB Questionnaire EDWARD-7 Date EDWARD - 7 assessed: 02/02/25 Feeling nervous, anxious, or on edge: 2 = More than half the days Not being able to stop or control worryin = More than half the days Worrying too much about different things: 2 = More than half the days Trouble relaxin = More than half the days Being so restless that it is hard to sit still: 2 = More than half the days Becoming easily annoyed or irritable: 2 = More than half the days Feeling afraid as if something awful might happen: 1 = Several days Total EDWARD-7 score (0-4 normal; 5-9 mild; 10-14 moderate; 15-21 severe): 13 Source: Developed by Drs. Chucky Parker, Penny Henderson, Sandeep Dumas and colleagues, with an educational veronica from [employer]. EDWARD-7 Assessment Billing EDWARD-7 Assessment Tool: EDWARD-7 Assessment 55612 Review of Systems Const All systems reviewed & are unremarkable except as noted in HPI and below Card Denies chest pain at rest, Denies chest pain with activity, Denies edema, Denies irregular heart rhythm, Denies claudication, Denies dyspnea, Denies dyspnea on exertion, Denies orthopnea, Denies paroxysmal nocturnal dyspnea and Denies slow heart rate Resp Denies cough, Denies dyspnea and Denies dyspnea on exertion GI Denies abdominal pain, Denies change in bowel habits, Denies excessive flatus, Denies nausea and Denies vomiting Physical exam (Primary Care) Vital Signs: Last Vital Signs Temp 97.7 F 02/02/25 09:47 Pulse 91 02/02/25 09:47 Resp 16 02/02/25 09:47 BP 190/90 H 02/02/25 09:47 Pulse Ox 95 02/02/25 09:47 Oxygen Delivery Method Room Air 02/02/25 09:47 BMI result Body Mass Index 33.4 BMI Assessment/Plan discussion: High BMI High, discussed plan: lifestyle, weight reduction, dietary and physical activity Tobacco/Smoking Status: Tobacco use Status Tobacco use date assessed 09/22/24 02/02/25 09:49 Patient Tobacco Use Status Never used Tobacco 02/02/25 09:49 e-Cigarette/Vaping Use Never Used 02/02/25 09:49 PHQ-9: PHQ-9 Score PHQ-9: Total score 14 02/02/25 10:32 Depression Screening Interpretation: Positive Depression Screening Follow-up: Existing condition, In treatment, Community Mental Health Worker F/U and Follow-up Visit Requested Thrive Assessment: Date of Thrive Assessment Date Thrive assessed 02/02/25 02/02/25 09:49 Currently or been in a relationship where the following occur: No concerns reported Resp Effort & Inspection: normal respiratory effort Auscultation: clear to auscultation bilaterally Cardio Jugular venous distension: no JVD Rate: regular rate Rhythm: regular rhythm Heart sounds: S1 normal heart sound present and S2 normal heart sound present Extrem General: Yes full ROM Results AMB Hemoglobin A1c AMB Hemoglobin A1c 5.6 % Last Edit by HANNAH Barker on 02/02/25 11:10 Coding Level of Care Code Add On Preventative Visit Only Diagnoses Moderate major depression F32.1 Essential hypertension I10 Pure hypercholesterolemia E78.00 Type 2 diabetes mellitus with hyperglycemia, without long-term current use of insulin E11.65 Diabetes mellitus type: type 2 Diabetes mellitus long term care pharmacist insulin use: without long term care pharmacist use Diabetes mellitus complication status: with hyperglycemia Gout M10.9 URI (upper respiratory infection) J06.9 Additional Codes EDWARD-7 Assessment Billing - EDWARD-7 Assessment Tool: EDWARD-7 Assessment 68510 ([id number]) Time Spent (min) 23 Assessment & Plan Assessment & Plan (1) Moderate major depression: Code(s): F32.1 - Major depressive disorder, single episode, moderate Category: Medical (2) Essential hypertension: Code(s): I10 - Essential (primary) hypertension Category: Medical (3) Pure hypercholesterolemia: Code(s): E78.00 - Pure hypercholesterolemia, unspecified Category: Medical (4) Diabetes mellitus: Code(s): E11.9 - Type 2 diabetes mellitus without complications Category: Medical Qualifiers: Diabetes mellitus type: type 2 Diabetes mellitus long term care pharmacist insulin use: without usp use Diabetes mellitus complication status: with hyperglycemia Qualified Code(s): E11.65 - Type 2 diabetes mellitus with hyperglycemia (5) Gout: Code(s): M10.9 - Gout, unspecified Category: Medical (6) URI (upper respiratory infection): Code(s): J06.9 - Acute upper respiratory infection, unspecified Category: Medical Plan Plan 1. Hypertension The patient's blood pressure remains elevated despite adherence to losartan 25 mg. To improve control and reduce the risk of cardiovascular events, the dose of losartan will be increased to 50 mg daily. A follow-up appointment to recheck his blood pressure is scheduled in three weeks. 2. Diabetes Mellitus The patient's hemoglobin A1c is well-controlled. Will continue metformin 500 mg twice daily. Ozempic, a once-weekly injection, was discussed as a potential addition for diabetes management and weight loss. The prescription will be sent to the pharmacy to check for insurance coverage. 3. Sinus Congestion The patient presented with a new onset of sinus congestion. He was sent to the lab for testing for RSV and COVID. 4. Hyperlipidemia The patient's cholesterol was reported as very good on his last labs in October. He will continue his current medications, atorvastatin and ezetimibe. Repeat labs are deferred for four months. 5. Gout The patient reports no recent gout flare-ups. He will continue taking allopurinol 100 mg. 6. Recurrent Moderate Depression The patient has a PHQ-9 score of 14, consistent with recurrent moderate depression. He will continue his current medications and follow-up with his psychiatrist. Orders: Orders SARS-CoV2/FLU/RSV Today R09.89 - Other specified symptoms and signs involving the circulatory and respiratory systems Uric Acid 4 Months M10.9 - Gout, unspecified Vitamin D 25-OH Total 4 Months E55.9 - Vitamin D deficiency, unspecified Lipid Panel 4 Months E78.5 - Hyperlipidemia, unspecified Microalbumin, Random (w Creat) 4 Months R80.9 - Proteinuria, unspecified Comprehensive [place]. Panel Fast 4 Months E11.65 - Type 2 diabetes mellitus with hyperglycemia AMB Hemoglobin A1c Today E11.65 - Type 2 diabetes mellitus with hyperglycemia Medications: New losartan 50 mg PO DAILY 90 tabs 0RF 90 days semaglutide (Ozempic) for 4 weeks 0.25 mg (0.368 mL) subcut QWEEK 1.472 mL 0RF 4 weeks E11.65 - Type 2 diabetes mellitus with hyperglycemia Discontinued losartan Discontinued Reason: Patient Completed Course 25 mg PO DAILY 90 days 90 tabs 1RF I10 - Essential (primary) hypertension
[2025-02-02 10:55] VITALS: BP 160/90
--- OUTSIDE RECORDS SUMMARY | 2025-02-02 11:14 | XMS_ITS | Clinical Summary ---
Author Organization [employer] [facility] ity Address [address] [place] [address] Care Team Providers Care Fleet Director Name Role Phone Unavailable Primary Care Provider [...]
== END 2025-02-02 10:57 | disposition home or self-care (01) ==
LOC: HO.HMCH 09:40
PROVIDERS: PCP Internal Medicine; Visit Provider Internal Medicine
DX: F32.1 Major depressive disorder, single episode, moderate (principal); I10 Essential (primary) hypertension; E78.00 Pure hypercholesterolemia, unspecified; E11.65 Type 2 diabetes mellitus with hyperglycemia; M10.9 Gout, unspecified; J06.9 Acute upper respiratory infection, unspecified

== ENCOUNTER 2025-02-02 09:40 | Outpatient (REF) | payer OTHER, SELFPAY ==
[2025-02-02 12:08] LABS: Resp Syncy Virus RNA Qual PCR NEGATIVE (Negative); SARS COV2 PCR INHOUSE NEGATIVE (Negative)
== END 2025-02-02 09:41 | disposition home or self-care (01) ==
LOC: HO.LAB 09:40
PROVIDERS: PCP Internal Medicine; Visit Provider Internal Medicine
DX: R09.89 Other specified symptoms and signs involving the circulatory and respiratory systems (principal); F32.1 Major depressive disorder, single episode, moderate; I10 Essential (primary) hypertension; E78.00 Pure hypercholesterolemia, unspecified; E11.65 Type 2 diabetes mellitus with hyperglycemia; M10.9 Gout, unspecified; J06.9 Acute upper respiratory infection, unspecified; R74.01 Elevation of levels of liver transaminase levels; R80.9 Proteinuria, unspecified; E55.9 Vitamin D deficiency, unspecified; E78.5 Hyperlipidemia, unspecified
CPT/HCPCS: 83036; 86704; 86706; 86709; 87340; 87637; 96127; 99212

== ENCOUNTER → 2025-02-14 09:48 | Outpatient (BNVA) | payer OTHER, SELFPAY | PROVIDERS: PCP Internal Medicine | DX: Z01.89 Encounter for other specified special examinations (principal) ==